=== PATIENT | female | born 1935 | race Caucasian/White ===

== ENCOUNTER 2024-06-01 19:54 | Inpatient (IN) | payer MEDICARE, SELFPAY ==
[2024-06-01] VITALS (11 sets, daily range): BP systolic 93–137; BP diastolic 52–79; PULSE 79–112; RESP 16–23; TEMP 36.8–38.7; O2SAT 91–98; BMI 23.2
--- NOTE | 2024-06-01 20:06 | CTR_ITS ---
PROCEDURE INFORMATION: Exam: CT Head Without Contrast Exam date and time: 06/01/2024 8:22 PM Age: 89 years old Clinical indication: Altered mental status/memory loss; Additional info: AMS TECHNIQUE: Imaging protocol: Computed tomography of the head without contrast. Radiation optimization: All CT scans at this facility use at least one of these dose optimization techniques: automated exposure control; mA and/or kV adjustment per patient size (includes targeted exams where dose is matched to clinical indication); or iterative reconstruction. COMPARISON: No relevant prior studies available. RADIATION DOSE METRICS: Total DLP (mGy-cm): 1119.8 FINDINGS: Brain: Hypoattenuation within the left parieto-occipital lobe concerning for infarct. Encephalomalacia within anterior left frontal lobe. Moderate microangiopathy with global cerebral volume loss. No intracranial hemorrhage. Cerebral ventricles: No ventriculomegaly. Paranasal sinuses: Visualized sinuses are unremarkable. No fluid levels. Mastoid air cells: Visualized mastoid air cells are well aerated. Bones: Unremarkable. No acute fracture. Soft tissues: Unremarkable. CT/CT head wo con* [id number] IMPRESSION: Hypoattenuation within the left parieto-occipital lobe concerning for infarct. Encephalomalacia within anterior left frontal lobe. Moderate microangiopathy with global cerebral volume loss. COMMENT: THIS REPORT CONTAINS FINDINGS THAT MAY BE CRITICAL TO PATIENT CARE. The exam findings were verbally communicated by me to CONRAD VELASQUEZ via telephone conference at 8:37 PM CDT on 06/01/2024. The findings were acknowledged and understood.
--- NOTE | 2024-06-01 20:06 | XRR_ITS ---
PROCEDURE INFORMATION: Exam: XR Chest Exam date and time: 06/01/2024 8:16 PM Age: 89 years old Clinical indication: Other: AMS; Additional info: Possible sepsis TECHNIQUE: Imaging protocol: Radiologic exam of the chest. Views: 1 view. COMPARISON: No relevant prior studies available. FINDINGS: Lungs: Retrocardiac opacities may represent atelectasis versus consolidation. Pleural spaces: Unremarkable. No pleural effusion. No pneumothorax. Heart/Mediastinum: Cardiomegaly. Vasculature: Atherosclerotic calcifications. Bones/joints: Unremarkable. Soft tissues: Bilateral breast prosthesis. XR/XR chest 1V portable [id number] IMPRESSION: Retrocardiac opacities may represent atelectasis versus consolidation. Cardiomegaly.
--- NOTE | 2024-06-01 20:08 | ED_ITS ---
HPI - Fever 2 General: Chief Complaint: Fever Stated Complaint: AMS Time Seen by Provider: 06/01/24 19:55 Source: EMS Mode of arrival: EMS Limitations: altered mental status History of Present Illness: 89-year-old female is here from [facility] visiting family patient's had a history of UTIs per EMS states that family had called because she had been confused since around noon or 1 today patient had a temperature 101.6 with EMS patient here is confused she is able to tell me her name she knows where she is from but she is quite confused trying to answer any questions and does not know the year. No known recent cough or vomiting. Per daughter patient has had difficulty ambulating today as well she states this started around noon. Patient states she has had a stroke in the past. Review of Systems 2 General: Reports: ROS unobtainable due to mental status Physical Exam 2 Const: COMMON NORMALS: alert; negative for patient oriented x3 ORIENTATION/CONSCIOUSNESS: Yes oriented to person; not oriented to time HENMT: COMMON NORMALS: normocephalic and atraumatic HEAD & SCALP: n ormocephalic and atraumatic Eye: COMMON NORMALS: Equal, round and reactive pupils present and EOMs intact bilaterally PUPIL: Yes Equal, round and reactive pupils present Neck/C-Spine: COMMON NORMALS: full ROM and supple Chest: COMMONS NORMALS: normal inspection of the chest and normal palpation of entire chest wall Resp: COMMON NORMALS: normal respiratory effort, No retractions, No use of accessory muscles and clear to auscultation bilaterally AUSCULTATION: clear to auscultation bilaterally Cardio: COMMON NORMALS: regular rate, regular rhythm and No murmurs present (Cardio) RATE: regular rate RHYTHM: regular rhythm GI: COMMON NORMALS: Normal to inspection, nondistended, normoactive bowel sounds present, Soft to palpation, non-tender and no masses PALPATION: Yes Soft to palpation Extremity: COMMON NORMALS: normal to inspection and full ROM Neuro: COMMON NORMALS: moves all extremities and no focal motor deficits; negative for patient oriented x3 SENSORIUM/ORIENTATION: Yes alert, Yes oriented to person and No oriented to time CRANIAL NERVES: Yes CN normal except as noted SPEECH: speech normal Psych: COMMON NORMALS: cooperative; negative for mental status grossly normal Skin: COMMON NORMALS: no rashes or lesions noted and no wounds GENERAL SKIN EXAM: no rashes or lesions noted Course 2 Vital Signs: Vital signs: Vital Signs Temperature 101.6 F H 06/01/24 21:18 Pulse Rate 88 06/01/24 21:18 Respiratory Rate 16 06/01/24 21:18 Blood Pressure 123/68 06/01/24 21:18 Pulse Oximetry 92 06/01/24 21:18 Oxygen Delivery Me thod Room Air 06/01/24 21:18 Oxygen Flow Rate 2 06/01/24 20:33 MDM - Fever Medical Decision Making Patient presents with altered mental status confusion likely from UTI. Head CT showed concern for stroke CTA showed no large occlusion she had a history of a stroke in the past she is not a lytic candidate as her last known normal was noon no large thrombus is not a thrombectomy candidate her altered mental status symptoms likely from her UTI will admit to treat her UTI spoke to the hospitalist her blood pressures here been stable Medical Records I reviewed the patient's medical records. Lab Data I reviewed the patient's lab results. 06/01/24 20:06 06/01/24 20:06 Radiology Impressions Chest X-Ray 06/01/24 20:06 IMPRESSION: Retrocardiac opacities may represent atelectasis versus consolidation. Cardiomegaly. Head CT 06/01/24 20:06 IMPRESSION: Hypoattenuation within the left parieto-occipital lobe concerning for infarct. Encephalomalacia within anterior left frontal lobe. Moderate microangiopathy with global cerebral volume loss. COMMENT: THIS REPORT CONTAINS FINDINGS THAT MAY BE CRITICAL TO PATIENT CARE. The exam findings were verbally communicated by me to CONRAD VELASQUEZ via telephone conference at 8:37 PM CDT on 06/01/2024. The findings were acknowledged and understood. Head/Neck CTA 06/01/24 20:39 IMPRESSION: 1. No large vessel stenosis or occlusion is seen. 2. Hypoattenuation within the left parieto-occipital lobe concerning for infarction. 3. Encephalomalacia within anterior left frontal lobe. Moderate microangiopathy with global cerebral volume loss. IMPRESSION: 1. No stenosis or occlusion. 2. Moderate atherosclerotic calcifications of the carotid bifurcations and proximal internal carotid arteries without significant stenosis. REFERENCES: NASCET CRITERIA. The degree of stenosis in the cervical segment of the internal carotid artery is based on NASCET criteria. Normal is no stenosis. Mild is less than 50% stenosis. Moderate is 50-69% stenosis. Severe is 70% to 99% stenosis. Total occlusion is no detectable patent lumen. Laboratory Results WBC 13.10 10^3/uL (3.29-11.43) H 06/01/24 20:06 RBC 3.88 10^6/uL (3.85-5.65) 06/01/24 20:06 Hgb 11.10 g/dL (11.27-16.99) L 06/01/24 20:06 Hct 35.0 % (36-47) L 06/01/24 20:06 MCV 90.2 fl (85-98) 06/01/24 20:06 MCH 28.6 pg (27-33) 06/01/24 20: MCHC 31.7 g/dL (30-55) 06/01/24 20:06 RDW 15.6 % (12.1-15.1) H 06/01/24 20:06 Plt Count 136 10^3/cmm (157-399) L 06/01/24 20:06 MPV 12.0 fL (7.4-10.4) H 06/01/24 20:06 Neut % (Auto) 77.8 % 06/01/24 20:06 Lymph % (Auto) 13.8 % 06/01/24 20:06 [place] % (Auto) 7.4 % 06/01/24 20:06 Eos % (Auto) 0.0 % 06/01/24 20:06 Baso % (Auto) 0.2 % 06/01/24 20:06 Neut # (Auto) 10.20 10^3/uL (1.8-7.7) H 06/01/24 20:06 Lymph # (Auto) 1.8 10^3/uL (0.8-4.8) 06/01/24 20:06 [place] # (Auto) 1.0 10^3/uL (0.2-0.9) H 06/01/24 20:06 Eos # (Auto) 0.0 10^3/uL (0.0-0.8) 06/01/24 20:06 Baso # (Auto) 0.0 10^3/uL (0.0-0.1) 06/01/24 20:06 Nucleated RBC % (auto) 0 % 06/01/24 20:06 Nucleated RBCs # 0.0 /100WBC 06/01/24 20:06 PT 15.90 SECONDS (12.1-14.9) H 06/01/24 20:06 INR 1.23 (0.8-1.2) H 06/01/24 20:06 Sodium 139 mmol/L (136-145) 06/01/24 20:06 Potassium 4.0 mmol/L (3.5-5.1) 06/01/24 20:06 Chloride 103 mmol/L (98-107) 06/01/24 20:06 Carbon Dioxide 22 mmol/L (22-29) 06/01/24 20:06 Anion Gap 18.0 (5-19) 06/01/24 20:06 BUN 36 mg/dL (8-23) H 06/01/24 20:06 Creatinine 1.2 mg/dL (0.5-0.9) H 06/01/24 20:06 GFR Calculation Not Reportable 06/01/24 20:06 Glucose 125 mg/dL (65-115) H 06/01/24 20:06 POC Glucose 117 mg/dL (70-110) H 06/01/24 20:46 Calculated Osmolality 298 mOsm/kg (285-295) H 06/01/24 20:06 Lactic Acid 1.2 mmol/L (0.5-2.2) 06/01/24 20:06 Calcium 8.5 mg/dL (8.5-10.5) 06/01/24 20:06 Magnesium 2.1 mg/dL (1.7-2.3) 06/01/24 20:06 Total Bilirubin 0.5 mg/dL (0.15-1.2) 06/01/24 20:06 AST 17 U/L (0-32) 06/01/24 20:06 ALT 10 U/L (0-33) 06/01/24 20:06 Alkaline Phosphatase 93 U/L (35-105) 06/01/24 20:06 Total Protein 6.9 g/dL (6.6-8.7) 06/01/24 20:06 Albumin 3.8 g/dL (3.5-5.2) 06/01/24 20:06 Globulin 3.1 g/dL (1.3-4.6) 06/01/24 20:06 Urine Color Yellow (Yellow) 06/01/24 20:50 Urine Appearance Cloudy (CLEAR) A 06/01/24 20:50 Urine pH 5.5 (5-7) 06/01/24 20:50 Ur Specific [place] 1.016 (1.005-1.030) 06/01/24 20:50 Urine Protein 2+ (Negative) A 06/01/24 20:50 Urine Glucose (UA) Negative (Normal) 06/01/24 20:50 Urine Ketones Negative (Negative) 06/01/24 20:50 Urine Blood 2+ (Negative) A 06/01/24 20:50 Urine Nitrate Negative (Negative) 06/01/24 20:50 Urine Bilirubin Negative (Negative) 06/01/24 20:50 Urine Urobilinogen 1.0 mg/dL (Negative) 06/01/24 20:50 Ur Leukocyte Esterase 3+ (Negative) A 06/01/24 20:50 Urine RBC 0-2 /hpf (0-2) 06/01/24 20:50 Urine WBC >100 /hpf (0-5) H 06/01/24 20:50 Ur Squamous Epith Cells 0-5 /hpf (0-5) 06/01/24 20:50 Amorphous Sediment Not Reportable 06/01/24 20:50 Urine Bacteria 4+ /hpf (NONE) H 06/01/24 20:50 Hyaline Casts 87.69 /lpf 06/01/24 20:50 All radiology interpretation(s) finalized by discharge EKG Data EKG 1: I personally reviewed and interpreted this EKG as follows: EKG interpretation date: 06/01/24 EKG interpretation time: 20:15 Interpretation: afib hr [address] elevation qrs 75 qtc 367 Critical Care Time 2 Critical Care Time: Critical Care Time: Yes Total Critical Care Time: 40 Attestation: The high probability of a clinically significant, sudden or life threatening deterioration of the patient's neuro system(s) required my full and direct attention, intervention and personal management. The critical care time is as shown. This time is in addition to time spent performing any reported procedures but includes the following: [x] Data and vital sign review and interpretation [x] Patient assessment, examination and intervention [x] Documentation [x] Medication orders and management Discharge Plan Discharge Patient Disposition: Admitted As Inpatient Clinical Impression: Acute cystitis, Sepsis, Altered mental status Condition: Stable Prescriptions: No Action mirtazapine 15 mg tablet atorvastatin 10 mg tablet digoxin 125 mcg (0.125 mg) tablet donepezil 10 mg tablet Eliquis 2.5 mg tablet BID pantoprazole 20 mg tablet,delayed release (DR/EC) PO sertraline 50 mg tablet memantine 10 mg tablet BID clonazepam 0.5 mg tablet 0.25 mg melatonin 5 mg B Complex Rx Instructions: 1 tab every other day Probiotic fiber Miralax Coding Level of Care Code ED Testing Director for Ty Gupta
--- NOTE | 2024-06-01 20:15 | ECG_ITS ---
[facility] Test Date: 2024-06-01 Pat Name: Reyna Romano Department: Room: Gender: Female Binder Operator: : 1935 Requested By: Devon Stewart Order Number: [id number] Janett MD: Prashant Shetty M.D. Measurements Intervals [place] Rate: 101 P: 0 CT: 0 QRS: -8 QRSD: 75 T: 180 QT: 309 QTc: 401 Interpretive Statements ATRIAL FIBRILLATION WITH RAPID VENTRICULAR RESPONSE ST DEVIATION AND MODERATE T-WAVE ABNORMALITY, CONSIDER LATERAL ISCHEMIA [-0.1+ mV T-WAVE IN I/aVL/V5/V6] No previous ECG available for comparison Electronically Signed On 06-02-2024 7:53:15 CDT by Prashant Shetty M.D. [email or web address] Surgical/store/[id number]
[2024-06-01 20:17] LABS: Basophils % 0.2 %; Lymphocytes # 1.8 10^3/uL (0.8-4.8); Lymphocytes % 13.8 %; Mean Corpuscular HGB Conc 31.7 g/dL (30-55); Mean Corpuscular Hemoglobin 28.6 pg (27-33); Mean Corpuscular Volume 90.2 fl (85-98); Monocytes % 7.4 %; Neutrophils % 77.8 %; Nucleated Red Blood Cells % 0 %; Platelet Count 136 10^3/cmm (157-399); Red Blood Count 3.88 10^6/uL (3.85-5.65); Red Cell Distribution Width 15.6 % (12.1-15.1)
[2024-06-01 20:23] LABS: INR 1.23 (0.8-1.2)
[2024-06-01 20:30] LABS: Alanine Aminotransferase 10 U/L (0-33); Albumin Level 3.8 g/dL (3.5-5.2); Alkaline Phosphatase 93 U/L (35-105); Aspartate Amino Transferase 17 U/L (0-32); Blood Urea Nitrogen 36 mg/dL (8-23); Calcium 8.5 mg/dL (8.5-10.5); Carbon Dioxide 22 mmol/L (22-29); Chloride 103 mmol/L (98-107); Creatinine Clr Calc Pharmacy 24.5303; Globulin 3.1 g/dL (1.3-4.6); Glucose 125 mg/dL (65-115); Magnesium 2.1 mg/dL (1.7-2.3); Osmolality Calculated 298 mOsm/kg (285-295); Sodium 139 mmol/L (136-145); Total Bilirubin 0.5 mg/dL (0.15-1.2); Total Protein 6.9 g/dL (6.6-8.7)
[2024-06-01 20:31] LABS: Lactic Sepsis W/Reflex 1.2 mmol/L (0.5-2.2)
--- NOTE | 2024-06-01 20:39 | CTR_ITS ---
PROCEDURE INFORMATION: Exam: CTA Head With Contrast, Arteriography Exam date and time: 06/01/2024 8:54 PM Age: 89 years old Clinical indication: Stroke-like symptoms; Altered mental status/memory loss; Additional info: CVA TECHNIQUE: Imaging protocol: Computed tomographic angiography of the head with contrast. Exam focused on the arteries. 3D rendering (Not supervised by radiologist): MIP and/or 3D reconstructed images were created by the technologist. Radiation optimization: All CT scans at this facility use at least one of these dose optimization techniques: automated exposure control; mA and/or kV adjustment per patient size (includes targeted exams where dose is matched to clinical indication); or iterative reconstruction. Contrast material: OMNI 350; Contrast volume: 100 ml; Contrast route: INTRAVENOUS (IV); COMPARISON: CT head wo con* [id number] 06/01/2024 8:22 PM RADIATION DOSE METRICS: Total DLP (mGy-cm): 366.62 FINDINGS: ANTERIOR CIRCULATION: Right internal carotid artery: Intracranial segment is patent with no significant stenosis. No aneurysm. Right middle cerebral artery: No occlusion or significant stenosis. No aneurysm. Right anterior cerebral artery: No occlusion or significant stenosis. No aneurysm. Left internal carotid artery: Intracranial segment is patent with no significant stenosis. No aneurysm. Left middle cerebral artery: No occlusion or significant stenosis. No aneurysm. Left anterior cerebral artery: No occlusion or significant stenosis. No aneurysm. POSTERIOR CIRCULATION: Right vertebral artery: No occlusion or significant stenosis. No aneurysm. Left vertebral artery: No occlusion or significant stenosis. No aneurysm. Basilar artery: No occlusion or significant stenosis. No aneurysm. Right posterior cerebral artery: No occlusion or significant stenosis. No aneurysm. Left posterior cerebral artery: No occlusion or significant stenosis. No aneurysm. Brain: Hypoattenuation within the left parieto-occipital lobe concerning for infarction. Encephalomalacia within anterior left frontal lobe. Moderate microangiopathy with global cerebral volume loss. No definite mass, mass effect, or midline shift. Cerebral ventricles: No ventriculomegaly. Bones/joints: No acute fracture. Soft tissues: Unremarkable. COMMENTS: THIS REPORT CONTAINS FINDINGS THAT MAY BE CRITICAL TO PATIENT CARE. The exam findings were verbally communicated by me to CONRAD VELASQUEZ via telephone conference at 8:37 PM CDT on 06/01/2024. The findings were acknowledged and understood. PROCEDURE INFORMATION: Exam: CTA Neck With Contrast Exam date and time: 06/01/2024 8:54 PM Age: 89 years old Clinical indication: Stroke-like symptoms; Altered mental status/memory loss; Additional info: CVA TECHNIQUE: Imaging protocol: Computed tomographic angiography of the neck with contrast. Exam focused on the cervical segments of the vasculature. 3D rendering (Not supervised by radiologist): MIP and/or 3D reconstructed images were created by the technologist. Radiation optimization: All CT scans at this facility use at least one of these dose optimization techniques: automated exposure control; mA and/or kV adjustment per patient size (includes targeted exams where dose is matched to clinical indication); or iterative reconstruction. Contrast material: OMNI 350; Contrast volume: 100 ml; Contrast route: INTRAVENOUS (IV); COMPARISON: CT head wo con* [id number] 06/01/2024 8:22 PM RADIATION DOSE METRICS: Total DLP (mGy-cm): 366.12 FINDINGS: Right common carotid artery: No stenosis. No dissection or occlusion. Moderate atherosclerosis. Right internal carotid artery: No stenosis of the extracranial segment. No dissection or occlusion. Moderate atherosclerosis. Right external carotid artery: No occlusion or stenosis of the origin. Left common carotid artery: No stenosis. No dissection or occlusion. Moderate atherosclerosis. Left internal carotid artery: No stenosis of the extracranial segment. No dissection or occlusion. Moderate atherosclerosis. Left external carotid artery: No occlusion or stenosis of the origin. Right vertebral artery: No stenosis. No dissection or occlusion. Left vertebral artery: No stenosis. No dissection or occlusion. Soft tissues: Normal. No significant soft tissue swelling. Bones/joints: No acute fracture. Moderate to severe cervical spondylosis with intervertebral disc space narrowing posterior disc osteophyte complexes at the level of C2-C3 and C5-C6. Severe right facet arthropathy. CT/CT angio headneck* [id number] IMPRESSION: 1. No large vessel stenosis or occlusion is seen. 2. Hypoattenuation within the left parieto-occipital lobe concerning for infarction. 3. Encephalomalacia within anterior left frontal lobe. Moderate microangiopathy with global cerebral volume loss. IMPRESSION: 1. No stenosis or occlusion. 2. Moderate atherosclerotic calcifications of the carotid bifurcations and proximal internal carotid arteries without significant stenosis. REFERENCES: NASCET CRITERIA. The degree of stenosis in the cervical segment of the internal carotid artery is based on NASCET criteria. Normal is no stenosis. Mild is less than 50% stenosis. Moderate is 50-69% stenosis. Severe is 70% to 99% stenosis. Total occlusion is no detectable patent lumen.
[2024-06-01 21:03] LABS: Charge for UA Resulting for Rev
[2024-06-01] MEDS: iohexol 350 mg/mL 500 mL Btl (per mL) IV (21:04)
[2024-06-01] MEDS: acetaminophen 500 mg Tablet 1000 MG PO (21:11)
[2024-06-01] MEDS: piperacillin-tazobactam 3.375 GM in sodium chloride 0.9% (plus) 50 ML IV (21:11)
[2024-06-01] MEDS: vancomycin 1,000 MG in sodium chloride 0.9% 250 ML 250 MG IV (21:12)
[2024-06-01 21:28] LABS: Bilirubin Urine Negative (Negative); Blood Urine 2+ (Negative); Glucose Urine UA Negative (Normal); Ketones Urine Negative (Negative); Leukocyte Esterase Urine 3+ (Negative); Nitrate Urine Negative (Negative); Protein Urine 2+ (Negative); Specific Gravity, Urine 1.016 (1.005-1.030); Urine Appearance Cloudy (CLEAR); Urine Color Yellow (Yellow); pH Urine 5.5 (5-7)
[2024-06-01 21:33] LABS: Bacteria Urine 4+ /hpf; Hyaline Casts Urine 87.69 /lpf; RBC Urine 0-2 /hpf (0-2); Squamous Epithelial Cell Urine 0-5 /hpf (0-5); WBC Urine >100 /hpf (0-5)
[2024-06-01 21:35] LABS: Glucose Point of Care 117 mg/dL (70-110)
[2024-06-01 21:35] LABS: Add Urine Culture? Yes
[2024-06-01] MEDS: aspirin 325 mg Tablet PO (21:49)
[2024-06-01 22:49] LABS: SARS Covid-2 Antigen Negative (Negative)
--- NOTE | 2024-06-01 23:59 | P.HP_ITS ---
Providers/Chief Complaint 2 Admitting Physician: Margarita Viveros MD Chief Complaint: AMS History of Present Illness Reyna Romano is a 89 year old female with known H/o vascular dementia,h/o prior strokes, currently at baseline mentation, A fib on a/c with Eliquis brought to the ER by daughter with c/o fever, generalized weakness and malaise. Symptoms started approximately 24 hrs ago. She was noted to be tachycardic, and brought by daughter to ER due to concern for A fib. Patient correctly states her name recognizes her daughter and the fact she is not at home. She denies any chest or abdominal pain. C/o 1 episode of vomiting today. No c/o diarrhea. No c/o dysuria. Review of Systems 2 General: Reports: ROS unobtainable due to medical condition Medications/Allergies Home Medications Medication Instructions Recorded Confirmed Last Taken Type B Complex 06/01/24 Unknown History Miralax 06/01/24 Unknown History Probiotic 06/01/24 Unknown History apixaban 2.5 mg tablet (Eliquis) mg BID 06/01/24 Unknown History atorvastatin 10 mg tablet mg 06/01/24 06/01/24 Unknown History clonazepam 0.5 mg tablet 0.25 mg 06/01/24 Unknown History digoxin 125 mcg (0.125 mg) tablet 06/01/24 Unknown History donepezil 10 mg tablet mg 06/01/24 Unknown History fiber 06/01/24 Unknown History melatonin 5 mg 06/01/24 Unknown History memantine 10 mg tablet mg BID 06/01/24 Unknown History mirtazapine 15 mg tablet mg 06/01/24 Unknown History pantoprazole 20 mg tablet,delayed mg PO 06/01/24 Unknown History release sertraline 50 mg tablet mg 06/01/24 Unknown History Allergies Allergy/AdvReac Type Severity Reaction Status Date / Time ibuprofen Allergy Unknown Verified 06/01/24 20:04 PFSH Acute 2 PFSH: Medical History (Updated 06/02/24 @ 06:19 by Margarita Viveros MD) Atrial fibrillation and flutter Vascular dementia Vitals/I&O/Wt Last Vital Signs Temp 101.6 F H 06/01/24 21:18 Pulse 90 06/01/24 23:30 Resp 18 06/01/24 23:30 BP 94/58 06/01/24 23:30 Pulse Ox 97 08/05/24 23:30 O2 Del Method Nasal Cannula 06/01/24 23:00 O2 Flow Rate 2 06/01/24 23:00 Weight last 48 hrs Weight 53.977 kg Physical Exam 2 Narrative: General: No acute distress, AO x2 HEENT: PERRLA, pupils bilaterally equal and reactive, pallors not present Chest: Normal vesicular breath sounds, no added sounds, equal good air entry bilaterally CVS: S1-S2 regular, no murmurs, no tachycardia, no gallops, no rubs Abdomen: Soft, nontender, no organomegaly, bowel sounds present Neuro: No focal deficits, no facial deformity, AO x2, power 5/5 in all limbs Data 06/02/24 03:54 06/02/24 03:54 Micro: Microbiology 06/01/24 21:31 Blood Culture - Preliminary Blood SPECIMEN COLLECTED 06/01/24 21:21 Blood Culture - Preliminary Blood SPECIMEN COLLECTED A&P Assessment and plan (1) Acute cystitis: (2) Atrial fibrillation with RVR: (3) Pneumonia: Plan Fever 101.6F, leukocytosis, positive UA and LLL infiltrate 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 Showed hypoattenutaion in left parieto occipital region, likely old, corelating with history provided by family DNR/ DNI DVT ppx: Eliquis Attestations 2 Medical Necessity Statement*: > 2 midnight admission anticipated Coding Level of Care Code Acute Code for Chg Fwd Moderate MDM includes number and complexity of problems actively addressed during encounter, amount and/or complexity of data reviewed/ordered and described risk of complication, morbidity or mortality of management as documented Diagnoses Acute cystitis N30.00 Atrial fibrillation with RVR I48.91 Pneumonia J18.9
[2024-06-02] VITALS (11 sets, daily range): BP systolic 95–135; BP diastolic 52–69; PULSE 68–108; RESP 18–27; TEMP 36.4–39.4; O2SAT 91–97
[2024-06-02 00:33] LABS: NT Pro B Type Natriuretic Pept 10211 pg/mL (0-450)
[2024-06-02] MEDS: sodium chloride 0.9% 1,000 ML 50 ML IV (00:43)
[2024-06-02 00:48] LABS: Digoxin 1.6 ng/mL (0.6-1.2)
[2024-06-02 04:59] LABS: Basophils # 0.1 10^3/uL (0.0-0.1); Basophils % 0.5 %; Eosinophils # 0.2 10^3/uL (0.0-0.8); Eosinophils % 1.9 %; Hematocrit 39.1 % (36-47); Lymphocytes # 1.2 10^3/uL (0.8-4.8); Lymphocytes % 11.8 %; Mean Corpuscular HGB Conc 29.2 g/dL (30-55); Mean Corpuscular Hemoglobin 28.8 pg (27-33); Mean Corpuscular Volume 98.7 fl (85-98); Mean Platelet Volume 12.1 fL (7.4-10.4); Monocytes # 0.6 10^3/uL (0.2-0.9); Monocytes % 5.5 %; Neutrophils # 8.32 10^3/uL (1.8-7.7); Neutrophils % 79.7 %; Nucleated Red Blood Cells % 0 %; Platelet Count 107 10^3/cmm (157-399); Red Blood Count 3.96 10^6/uL (3.85-5.65); Red Cell Distribution Width 15.9 % (12.1-15.1); White Blood Count 10.43 10^3/uL (3.29-11.43)
[2024-06-02] MEDS: piperacillin-tazobactam 3.375 GM in sodium chloride 0.9% (plus) 50 ML IV ×3 (05:09→21:08)
[2024-06-02 05:34] LABS: Alanine Aminotransferase 11 U/L (0-33); Albumin Level 2.9 g/dL (3.5-5.2); Alkaline Phosphatase 91 U/L (35-105); Blood Urea Nitrogen 34 mg/dL (8-23); Calcium 7.6 mg/dL (8.5-10.5); Carbon Dioxide 16 mmol/L (22-29); Chloride 107 mmol/L (98-107); Creatinine Clr Calc Pharmacy 22.6433; Globulin 2.9 g/dL (1.3-4.6); Glucose 84 mg/dL (65-115); Osmolality Calculated 289 mOsm/kg (285-295); Sodium 136 mmol/L (136-145); Thyroid Stimulating Hormone 1.28 uIU/mL (0.27-4.20); Total Bilirubin 0.5 mg/dL (0.15-1.2); Total Protein 5.8 g/dL (6.6-8.7)
[2024-06-02 05:36] LABS: Anion Gap 16.8 (5-19); Aspartate Amino Transferase 21 U/L (0-32); Potassium 3.8 mmol/L (3.5-5.1)
[2024-06-02] MEDS: pantoprazole DR 40 mg Tablet PO (08:54)
[2024-06-02] MEDS: azithromycin 250 mg Tablet 500 MG PO (08:54)
[2024-06-02] MEDS: apixaban 5 mg Tablet PO (08:54)
--- NOTE | 2024-06-02 08:55 | PC.CHAP ---
Pastoral Care Encounter/Spiritual Assessment Type of Contact [] Declined shop fitter visit [] Patient/Family/Request visit [] Outpatient visit [] Follow-up visit [] Physician referral [] Code/Alert [x] Routine visit [] Staff referral [] Actively dying [x] Patient sleeping [x] Family support [] [] Out of room [] Palliative care [] [] Receiving care in room [] Pre-surgical visit [] Trauma [] Long length of stay [] ICU visit [] Other: Relational/Emotional Strength [] Patient feels connected with others/family/visitors/staff [] Distress [] Loneliness/isolation [] Abandonment Spirituality of Patient [] Person of Yris [] Attends Restoration of their Yris [] Believes in Prayer [] Reads Bible or Shinto materials [] There are Spiritual issues to be addressed Construction Tech Interventions [x] Prayer [] Active listening [x] Non-anxious presence [x] Spiritual/emotional support [] Crisis/trauma care [] Spiritual counseling [] Bereavement support [] Provided bereavement packet [] Provided Bible/devotional materials [] Provided toy/stuffed animal, coloring book to patient or family member [] Provided Communion [] Anointing/[place] [] Salvation [x] Completed spiritual assessment [x] Other: prayed with family Impact on Illness or Injury [] Angry [] Fearful [] Anxious [] Often cries [] Exhaustion [] Unable to work [] Unable to attend advent [] Unable to walk/stand [] Unable to read [] Unable to drive [] Unable to eat/drink [] Unable to sleep [] Unable to be with family [] Patient intubated [] Other: Summary Time spent with patient 5 min
--- NOTE | 2024-06-02 12:13 | USCV_ITS ---
Reyna Del Rosario Age: 89 Gender: F : 1935 Exam Date: 06/02/2024 13:20 Ordering Phys: Evans Severino MD Technologist: Exam Location: [facility] [place] [facility] [place] Indication: murmur BP: / HR: Rhythm: Sinus Technical Quality: Adequate MEASUREMENTS (Male / Female) Normal Values 2D ECHO LV Diastolic Diameter PLAX 3.4 cm 4.2 - 5.9 / 3.9 - 5.3 cm IVS Diastolic Thickness 1.1 cm 0.6 - 1.0 / 0.6 - 0.9 cm IVS Systolic Thickness 1.7 cm LVPW Diastolic Thickness 1.3 cm 0.6 - 1.0 / 0.6 - 0.9 cm LVPW Systolic Thickness 1.2 cm LVOT Diameter 2.0 cm LV Ejection Fraction 2D Teich 67.7 % LV Ejection Fraction MOD 4C 64.1 % LV Ejection Fraction MOD 2C 68.0 % LV Ejection Fraction 2C AL 69.0 % LA Diameter 3.3 cm RA Systolic Volume 4C AL 83.7 ml RA Systolic Volume 4C MOD 77.4 ml Aorta at Sinotubular Diameter 2.3 cm M-MODE LA Ao Ratio MM 1.5 AV Cusp Separation MM 2.4 cm DOPPLER MV Area PHT 6.3 cm squared Mitral E to A Ratio 3.4 TV Peak Velocity 185.0 cm/s TR Peak Velocity 266.0 cm/s TR Peak Gradient 28.3 mmHg TV Peak E Velocity 107.0 cm/s Right Atrial Pressure 3.0 mmHg Pulmonary Artery Systolic Pressu 31.3 mmHg PV Peak Velocity 57.0 cm/s FINDINGS Left Ventricle Left ventricle is normal size. LV systolic function is normal with EF of 60 to 65%. No regional wall motion abnormalities are seen. Left ventricular hypertrophy seen. Right Ventricle Normal in size and function Right Atrium Normal in size Left Atrium Dilated Mitral Valve Moderate mitral annular calcification. Mild mitral regurgitation. Aortic Valve Structurally normal aortic valve. Mild to moderate aortic regurgitation. Tricuspid Valve Moderate tricuspid regurgitation. Pulmonary artery systolic pressure is normal. Pulmonic Valve Not well visualized Pericardium Normal Aorta Normal in size IVC Appears to be normal CONCLUSIONS LV systolic function is normal with EF of 60 to 65%. Left atrial dilation Mild mitral regurgitation Mild to moderate aortic regurgitation Moderate tricuspid regurgitation No comparison studies are available. Prashant Shetty MD (Electronically Signed) Final Date: 02 June 2024 16:52 S
--- NOTE | 2024-06-02 12:22 | CTR_ITS ---
PROCEDURE INFORMATION: Exam: CT Abdomen And Pelvis Without Contrast Exam date and time: 06/02/2024 10:05 PM Age: 89 years old Clinical indication: Abdominal tenderness; Prior surgery; Surgery date: 6+ months; Surgery type: Gastric SX, breast augmentation; Additional info: Kiet, UTI, bacteremia TECHNIQUE: Imaging protocol: Computed tomography of the abdomen and pelvis without contrast. Radiation optimization: All CT scans at this facility use at least one of these dose optimization techniques: automated exposure control; mA and/or kV adjustment per patient size (includes targeted exams where dose is matched to clinical indication); or iterative reconstruction. COMPARISON: CR (CHEST, ) 06/01/2024 8:16 PM RADIATION DOSE METRICS: Total DLP (mGy-cm): 399.7 FINDINGS: Lungs: Dependent atelectasis in the lower lobes. Pleural spaces: Small pleural effusions. Heart: Cardiomegaly. Mitral annulus calcifications. Small pericardial effusion. Diaphragm: Hiatal hernia. Liver: Normal. No mass. Gallbladder and biliary ducts: Cholecystectomy. Prominence of the bile ducts is most likely chronic reservoir effect. Pancreas: Normal. No ductal dilation. Spleen: Normal. No splenomegaly. Adrenal glands: Normal. No mass. Kidneys and ureters: Excreted contrast in the bilateral renal collecting system. No hydronephrosis. Stomach and bowel: Gastric bypass changes. Partial small bowel resection. No obstruction. Gas and fluid in the proximal and transverse colon. Moderate gas and scattered stool throughout the remainder of the colon to the rectum. Appendix: The appendix is not visualized. No secondary signs of appendicitis. Intraperitoneal space: Unremarkable. No free air. No significant fluid collection. Vasculature: Scattered calcified arterial plaque. No aneurysm. Lymph nodes: Unremarkable. No enlarged lymph nodes. Urinary bladder: The urinary bladder is decompressed with a Amador catheter in place. Mild wall thickening. Reproductive: Hysterectomy. Normal small ovaries. Bones/joints: Thoracolumbar scoliosis. Degenerative changes in the spine. No fracture. Soft tissues: Breast implants with capsular calcifications. Body wall edema. Anterior laparotomy scar. CT/CT abdomen pelvis wo con [id number] IMPRESSION: 1. Mild wall thickening in the urinary bladder which is decompressed with a Amador catheter. Cystitis is not excluded. Clinical correlation recommended. 2. Gaseous distension of the colon, most likely ileus. 3. Small pleural effusions.
[2024-06-02 12:54] LABS: Procalcitonin 0.83 ng/mL (0-0.5)
[2024-06-02 13:05] LABS: Estmated Average Glucose 114; Hemoglobin A1C 5.6 % (4.0-6.0)
--- NOTE | 2024-06-02 13:12 | P.PN_ITS ---
Subjective 2 Subjective: Admitted overnight. H&P and labs appreciated. Seen with daughter at bedside. As per daughter patient seems to be doing better. Patient has history of baseline vascular dementia. He usually lives in [place] and is visiting daughter for now. Remains on room air. Tmax since admission 101.6 Fahrenheit Vitals/I&O/Wt Last Vital Signs Temp 98.7 F 06/02/24 07:41 Pulse 107 H 06/02/24 07:41 Resp 19 H 06/02/24 07:41 BP 97/53 06/02/24 07:41 Pulse Ox 93 06/02/24 07:41 O2 Del Method Room Air 06/02/24 07:41 O2 Flow Rate 2 06/01/24 23:00 06/01/24 06/02/24 06/02/24 22:59 06:59 14:59 Intake Total / 48.333 / 48.333 Balance / 48.333 / 48.333 Weight last 48 hrs Weight 54.431 kg Weight 53.977 kg Weight 53.977 kg Physical Exam 2 Narrative: General: No acute distress, AO x2 HEENT: PERRLA, pupils bilaterally equal and reactive, pallors not present Chest: Normal vesicular breath sounds, no added sounds, equal good air entry bilaterally CVS: S1-S2 regular, no murmurs, no tachycardia, no gallops, no rubs Abdomen: Soft, nontender, no organomegaly, bowel sounds present Neuro: No focal deficits, no facial deformity, AO x2, power 5/5 in all limbs Urinary Catheter Management: Amador: Cath Placed During This Visit: yes Reason for Continuing Indwelling Catheter: Acute Urinary Retention or Obstruction Urinary Catheter Date of Insertion: 06/02/24 Urinary Catheter Time of Insertion: 06:03 Quick SOFA Score: Respiratory Rate: 19 Blood Pressure: 97/53 Joe Coma Scale: 10 qSOFA Score: 2 If qSOFA score 2 or greater, continue: PaO2/FiO2 Ratio (mmHg): 380 Blood Pressure Mean: 67 Bilirubin (mg/dl): 0.5 Platelets (x10?/ml): 107 C reatinine (mg/dl): 1.3 SOFA Score: 6 Evaluation: Current stage of sepsis: sepsis Sepsis stage criteria used: CMS Sep-1 and Sepsis-3 Crystalloid fluids: 30 mL/kg crystalloid fluids ordered and initiated within 3 hours Blood cultures ordered: Yes Possible source: genitourinary Focused Exam: Vital signs: Temp Pulse Resp BP Pulse Ox O2 Del Method 06/02/24 07:41 98.7 F 107 H 19 H 97/53 93 Room Air 06/02/24 06:00 108 H 06/02/24 04:00 98.3 F 86 23 H 98/52 94 Room Air Date exam was performed: 06/02/24 Time exam was performed: 13:14 2 Sepsis Screen No Definite Risk 06/01/24 23:30 Respiratory Rate 19 breaths/min H (12 - 18) 06/02/24 07:41 Blood Pressure 97/53 mmHg 06/02/24 07:41 Joe Coma Scale Score 10 06/01/24 23:58 Quick SOFA Score 1 06/01/24 23:30 SOFA Score: 2 Joe Coma Scale Score 10 06/01/24 23:58 Blood Pressure Mean 67 mmHg 06/02/24 07:41 Total Bilirubin 0.5 mg/dL (0.15-1.2) 06/02/24 03:54 Platelet Count 107 10^3/cmm (157-399) L 06/02/24 03:54 Creatinine 1.3 mg/dL (0.5-0.9) H 06/02/24 03:54 Data 06/02/24 03:54 06/02/24 03:54 Micro: Microbiology 06/01/24 21:21 Blood Culture - Preliminary Blood Escherichia coli 06/01/24 21:31 Blood Culture - Preliminary Blood SPECIMEN COLLECTED A&P Assessment and plan (1) Sepsis: SIRS: Tachycardic, Febrile, Leukocytosis Source: UTI End organ damage: Bacteremia, atrial fibrillation, JERRY Lactic acid within normal limits Patient did receive full 30 mL/kg BW. Continue with NS at 50 cc/h. Monitor blood pressures. Keep mean artery pressure 65 mmHg. Follow-up blood culture, urine culture, MRSA swab, procalcitonin, urine Legionella, bacterial antigen. Check respiratory viral panel. Continue with IV Zosyn for now. De-escalate antibiotics as per culture results. (2) E coli bacteremia: Blood cultures from admission positive. Repeat blood cultures in AM. Most likely in setting of UTI. Check CT abdomen pelvis to rule out kidney stones or obstructive nephropathy. Continue with IV antibiotics as above. De-escalate as per culture sensitivities. Patient will need at least 14 days of antibiotics after first negative blood cultures. (3) Acute cystitis: (4) Atrial fibrillation with RVR: Chronic history. Blood pressure soft. Heart rate improving with hydration and resolution of fever. Digoxin level elevated up to 1.6 on admission. Hold off on digoxin for now. IV metoprolol 2.5 mg every 4 hours as needed for heart rate of more than 100 bpm. Hold off and systolic blood pressure less than 90 mmHg. Repeat digoxin level in AM. If needed can use amiodarone. Continue with home dose of Eliquis 2.5 mg twice daily given advanced age and renal functions (5) JERRY (acute kidney injury): Do not have baseline. Currently creatinine worsening to 1.3. Start on IV fluids at 50 cc/h. Medical requisition done for nephrotoxic drugs. Monitor BMP daily. Monitor electrolytes. (6) Pneumonia: (7) Altered mental status: Most likely encephalopathy in setting of bacteremia/infection with baseline vascular dementia. Continue to monitor. Aspiration and fall precaution. (8) Elevated digoxin level: (9) Vascular dementia: Plan CODE STATUS: Discussed with patient's daughter and primary caregiver daughter at [place] over the phone. They state patient is DNR/DNI. Cardiac diet. Watch for aspiration precaution. Protonix OPD prophylaxis Eliquis will be sufficient for DVT prophylaxis Discharge plan: Plan to discharge home with caregiver once patient is clinically stable. Restart other home medications. Attestations 2 Medical Necessity Statement*: Requires further hospitalization for management of sepsis in setting of E. coli bacteremia, acute kidney injury, altered mental status, A-fib with RVR Diagnoses Sepsis A41.9 E coli bacteremia R78.81; B96.20 Acute cystitis N30.00 Atrial fibrillation with RVR I48.91 JERRY (acute kidney injury) N17.9 Pneumonia J18.9 Altered mental status R41.82 Vascular dementia F01.50 Elevated digoxin level R78.89
[2024-06-02 14:03] LABS: Iron 16 ug/dL (37-145)
[2024-06-02 14:19] LABS: Vitamin B12 1220 pg/mL (232-1245)
[2024-06-02 14:22] LABS: Adenovirus Not Detected (NOT DETECT); Chlamydia Pneumoniae Not Detected (NOT DETECT); Coronavirus 229E,HKU1,NL63,OC4 Not Detected (NOT DETECT); Human Metapneumovirus Not Detected (NOT DETECT); Human Rhinovirus/Enterovirus Not Detected (NOT DETECT); Influenza A Not Detected (NOT DETECT); Influenza A H1 Not Detected (NOT DETECT); Influenza A H1-2009 Not Detected (NOT DETECT); Influenza A H3 Not Detected (NOT DETECT); Influenza B Not Detected (NOT DETECT); Mycoplasma Pneumoniae Not Detected (NOT DETECT); Parainfluenza Virus Type 1 Not Detected (NOT DETECT); Parainfluenza Virus Type 2 Not Detected (NOT DETECT); Parainfluenza Virus Type 3 Not Detected (NOT DETECT); Parainfluenza Virus Type 4 Not Detected (NOT DETECT); Respiratory Syncytial Virus A Not Detected (NOT DETECT); Respiratory Syncytial Virus B Not Detected (NOT DETECT); SARS-COV-2 Not Detected (NOT DETECT)
[2024-06-02 14:28] LABS: Percent Saturation 5.3 % (20-50); Total Iron Binding Capacity 298 mcg/dl; Unsaturated Iron Binding 282 ug/dL (112-347)
[2024-06-02] MEDS: memantine 5 mg tablet 10 MG PO (17:34)
[2024-06-02] MEDS: mirtazapine 15 mg Tablet PO (17:39)
[2024-06-02] MEDS: donepezil 5 MG Tablet 10 MG PO (17:39)
[2024-06-02 18:23] LABS: Glucose Point of Care 81 mg/dL (70-110)
--- NOTE | 2024-06-02 18:35 | PC.NURSE ---
Patient more alert this afternoon than this morning. She is oriented to place and person. Daughter and granddaughter updated on plan and informed about infections and the plan to treat those. Heart rate doing much better, staying in the 70s-80s\.
[2024-06-02] MEDS: acetaminophen 325 mg Tablet 650 MG PO (19:58)
[2024-06-02] MEDS: apixaban 5 mg Tablet 2.5 MG PO (21:08)
[2024-06-03] VITALS (10 sets, daily range): BP systolic 95–142; BP diastolic 46–87; PULSE 83–114; RESP 20–30; TEMP 36.6–38.6; O2SAT 89–98; BMI 23.4
[2024-06-03 04:29] LABS: Basophils % 0.2 %; Eosinophils % 0.3 %; Lymphocytes # 1.4 10^3/uL (0.8-4.8); Lymphocytes % 14.6 %; Mean Corpuscular HGB Conc 30.5 g/dL (30-55); Mean Corpuscular Hemoglobin 28.4 pg (27-33); Mean Platelet Volume 12.9 fL (7.4-10.4); Monocytes # 0.7 10^3/uL (0.2-0.9); Monocytes % 7.2 %; Neutrophils # 7.42 10^3/uL (1.8-7.7); Neutrophils % 77.2 %; Nucleated Red Blood Cells % 0 %; Platelet Count 107 10^3/cmm (157-399); Red Blood Count 3.98 10^6/uL (3.85-5.65); Red Cell Distribution Width 16.1 % (12.1-15.1); White Blood Count 9.61 10^3/uL (3.29-11.43)
[2024-06-03 04:48] LABS: Alanine Aminotransferase 21 U/L (0-33); Albumin Level 3.1 g/dL (3.5-5.2); Alkaline Phosphatase 100 U/L (35-105); Aspartate Amino Transferase 34 U/L (0-32); Blood Urea Nitrogen 32 mg/dL (8-23); Calcium 8.1 mg/dL (8.5-10.5); Carbon Dioxide 18 mmol/L (22-29); Chloride 110 mmol/L (98-107); Creatinine Clr Calc Pharmacy 21.1041; Globulin 3.2 g/dL (1.3-4.6); Glucose 91 mg/dL (65-115); Osmolality Calculated 302 mOsm/kg (285-295); Sodium 143 mmol/L (136-145); Total Bilirubin 0.4 mg/dL (0.15-1.2); Total Protein 6.3 g/dL (6.6-8.7)
[2024-06-03 04:49] LABS: Chol HDL Ratio 2.29 mg/dL (0.0-4.40); Cholesterol 94 mg/dL (0-200); HDL Cholesterol 41 mg/dL (60-100); LDL Cholesterol Calculated 32 mg/dL (50-129); Magnesium 2.2 mg/dL (1.7-2.3); Triglycerides 104 mg/dL (0-150); VLDL Cholestrol Calculation 21 mg/dL (0-30)
[2024-06-03 04:50] LABS: Anion Gap 19.2 (5-19); Potassium 4.2 mmol/L (3.5-5.1)
[2024-06-03 05:01] LABS: Folate Level 6.7 ng/mL (4.8-37.3)
[2024-06-03] MEDS: piperacillin-tazobactam 3.375 GM in sodium chloride 0.9% (plus) 50 ML IV ×3 (05:28→20:58)
[2024-06-03] MEDS: sertraline 50 mg Tablet PO (05:29)
[2024-06-03] MEDS: apixaban 5 mg Tablet 2.5 MG PO ×2 (09:17→20:58)
[2024-06-03] MEDS: memantine 5 mg tablet 10 MG PO ×2 (09:17→18:15)
[2024-06-03] MEDS: pantoprazole DR 40 mg Tablet PO (09:17)
[2024-06-03] MEDS: azithromycin 250 mg Tablet 500 MG PO (09:17)
--- NOTE | 2024-06-03 10:57 | XR_ITS ---
WS: [id number] XR chest 1V portable [id number] REASON FOR EXAM: possible chf FINDINGS: The chest is unchanged compared to 06/01/2024. Moderate ectasia and tortuosity to the thoracic aorta. Moderate cardiomegaly. Enlarged left atrium with elevation of the left mainstem bronchus. Calcificati on of the mitral valve annulus. There is calcified granulomatous disease bilaterally. No acute pulmonary parenchymal or pleural abnormality is identified. XR/XR chest 1V portable [id number] IMPRESSION: Stable chest with moderate cardiomegaly and left atrial enlargement. No acute a bnormality.
[2024-06-03 11:22] LABS: Digoxin 1.2 ng/mL (0.6-1.2)
[2024-06-03 11:31] LABS: NT Pro B Type Natriuretic Pept 17107 pg/mL (0-450)
[2024-06-03] MEDS: digoxin 125 mcg Tablet PO (13:00)
[2024-06-03 13:04] LABS: Methicillin-Resist S.aureu PCR NOT DETECTED (NOT DETECTED)
--- NOTE | 2024-06-03 14:14 | P.PN_ITS ---
Subjective 2 Subjective: No acute events overnight. Seen with daughter at bedside. Patient is more awake and alert from yesterday. Able to have some conversation. She is alert to self, being in the hospital. Denies any nausea, vomiting. Tmax in last 24 hours 103 Fahrenheit last night. Vitals/I&O/Wt Last Vital Signs Temp 97.9 F 06/03/24 12:00 Pulse 112 H 06/03/24 13:00 Resp 20 H 06/03/24 12:00 BP 118/72 06/03/24 12:00 Pulse Ox 98 06/03/24 12:00 O2 Del Method Room Air 06/03/24 12:00 O2 Flow Rate 2 06/01/24 23:00 06/02/24 06/03/24 06/03/24 22:59 06:59 14:59 Intake Total 290 / 578.333 50 / 113.162 0402 / 1290 Output Total 800 / 800 Balance -510 / -221.667 50 / -100.809 6127 / 1290 Weight last 48 hrs Weight 54.431 kg Weight 54.431 kg Weight 53.977 kg Weight 53.977 kg Physical Exam 2 Narrative: General: No acute distress, AO x2 HEENT: PERRLA, pupils bilaterally equal and reactive, pallors not present Chest: Normal vesicular breath sounds, no added sounds, equal good air entry bilaterally CVS: S1-S2 regular, no murmurs, no tachycardia, no gallops, no rubs Abdomen: Soft, nontender, no organomegaly, bowel sounds present Neuro: No focal deficits, no facial deformity, AO x2, power 5/5 in all limbs Urinary Catheter Management: Amador: Cath Placed During This Visit: yes Reason for Continuing Indwelling Catheter: Accurate Measurement of Urinary Output in Critically Ill Patients Urinary Catheter Date of Insertion: 06/02/24 Urinary Catheter Time of Insertion: 06:03 Data 06/03/24 03:42 06/03/24 03:42 Micro: Microbiology 06/01/24 20:50 Urine Culture - Preliminary Urine,Clean Catch Gram Negative Rods Gram Negative Rods#2 06/01/24 21:31 Blood Culture - Preliminary Blood Escherichia coli 06/01/24 21:21 Blood Culture - Preliminary Blood Escherichia coli A&P Assessment and plan (1) Sepsis: SIRS: Tachycardic, Febrile, Leukocytosis Source: UTI End organ damage: Bacteremia, atrial fibrillation, JERRY Lactic acid within normal limits Patient did receive full 30 mL/kg BW. Monitor blood pressures. Keep mean artery pressure 65 mmHg. Follow-up blood culture, urine culture, MRSA swab, procalcitonin, urine Legionella, bacterial antigen. Check respiratory viral panel. Continue with IV Zosyn for now. De-escalate antibiotics as per culture results. (2) E coli bacteremia: Blood cultures from admission positive. Repeat blood cultures in AM. Most likely in setting of UTI. Check CT abdomen pelvis to rule out kidney stones or obstructive nephropathy. Continue with IV antibiotics as above. De-escalate as per culture sensitivities. Patient will need at least 14 days of antibiotics after first negative blood cultures. (3) Acute cystitis: (4) Atrial fibrillation with RVR: Chronic history. Blood pressure soft. Heart rate improving with hydration and resolution of fever. Digoxin level elevated up to 1.6 on admission. Hold off on digoxin for now. IV metoprolol 2.5 mg every 4 hours as needed for heart rate of more than 100 bpm. Hold off and systolic blood pressure less than 90 mmHg. Repeat digoxin level in AM. If needed can use amiodarone. Continue with home dose of Eliquis 2.5 mg twice daily given advanced age and renal functions (5) JERRY (acute kidney injury): Do not have baseline. Currently creatinine worsening to 1.3. Start on IV fluids at 50 cc/h. Medical requisition done for nephrotoxic drugs. Monitor BMP daily. Monitor electrolytes. (6) Pneumonia: (7) Altered mental status: Most likely encephalopathy in setting of bacteremia/infection with baseline vascular dementia. Continue to monitor. Aspiration and fall precaution. (8) Elevated digoxin level: (9) Vascular dementia: Plan CODE STATUS: Discussed with patient's daughter and primary caregiver daughter at [place] over the phone. They state patient is DNR/DNI. Cardiac diet. Watch for aspiration precaution. Protonix OPD prophylaxis Eliquis will be sufficient for DVT prophylaxis Discharge plan: Plan to discharge home with caregiver once patient is clinically stable. Plan for the day: Follow-up blood cultures. Continue with current IV antibiotics. De-escalate as per culture sensitivities. Repeat blood culture in a.m. Plan for antibiotics for over 14 days after negative blood cultures. Given fever curve high concerns for pyelonephritis. Appreciate CT abdomen pelvis results. No concern for obstructive nephropathy. Patient showing worsening creatinine up to 1.4. Appreciate input output. Check urine lites, urine creatinine. Patient did get CTA head and neck on admission. Patient remains on room air. Low concerns for CHF. Check proBNP, chest x-ray. Stop IV fluids. Cannot rule out CRS. Appreciate echocardiogram. Recheck digoxin levels. If normalizing will start on digoxin every other day. Monitor blood pressures. If remains stable will plan to start low-dose metoprolol in next 24 hours. Care discussed in detail with patient's daughter at bedside and over the phone. All the questions were answered. Attestations 2 Medical Necessity Statement*: Requires further hospitalization for management of gram-negative bacteremia in setting of cystitis and has concerns for pyelonephritis, A-fib with RVR, JERRY Diagnoses Sepsis A41.9 E coli bacteremia R78.81; B96.20 Acute cystitis N30.00 Atrial fibrillation with RVR I48.91 JERRY (acute kidney injury) N17.9 Pneumonia J18.9 Altered mental status R41.82 Elevated digoxin level R78.89 Vascular dementia F01.50
[2024-06-03 15:50] LABS: Blood Urea Nitrogen 28 mg/dL (8-23); Calcium 8.1 mg/dL (8.5-10.5); Carbon Dioxide 18 mmol/L (22-29); Chloride 105 mmol/L (98-107); Creatinine Clr Calc Pharmacy 24.6214; Glucose 96 mg/dL (65-115); Osmolality Calculated 289 mOsm/kg (285-295); Sodium 137 mmol/L (136-145)
--- NOTE | 2024-06-03 16:10 | PC.NURSE ---
patient spiked fever of over 102 and heart rate jumped to 178 but did not sustain there. Dr. Severino notified and ordered to give 1000mg acetaminophen IV once.
[2024-06-03] MEDS: acetaminophen 1,000 MG/100 ML PIGGYBACK 400 MG IV (16:26)
[2024-06-03] MEDS: donepezil 5 MG Tablet 10 MG PO (18:15)
[2024-06-03] MEDS: mirtazapine 15 mg Tablet PO (18:15)
[2024-06-04] VITALS (12 sets, daily range): BP systolic 119–136; BP diastolic 63–88; PULSE 72–113; RESP 19–25; TEMP 36.5–37.2; O2SAT 92–96; BMI 23.4
[2024-06-04] MEDS: piperacillin-tazobactam 3.375 GM in sodium chloride 0.9% (plus) 50 ML IV ×3 (05:21→20:35)
[2024-06-04] MEDS: sertraline 50 mg Tablet PO (05:21)
[2024-06-04 06:02] LABS: Urine Creatinine 93 mg/dL (28-217)
[2024-06-04 06:03] LABS: Potassium, Radom Urine 32 mmol/L; Urine Random Chloride 36 mmol/L; Urine Random Sodium 39 mmol/L
[2024-06-04 06:05] LABS: Basophils % 0.2 %; Eosinophils # 0.1 10^3/uL (0.0-0.8); Hematocrit 35.9 % (36-47); Lymphocytes # 1.5 10^3/uL (0.8-4.8); Lymphocytes % 15.7 %; Mean Corpuscular HGB Conc 30.9 g/dL (30-55); Mean Corpuscular Hemoglobin 28.1 pg (27-33); Mean Corpuscular Volume 90.9 fl (85-98); Mean Platelet Volume 12.4 fL (7.4-10.4); Monocytes # 0.8 10^3/uL (0.2-0.9); Neutrophils # 6.97 10^3/uL (1.8-7.7); Neutrophils % 74.1 %; Nucleated Red Blood Cells % 0 %; Platelet Count 127 10^3/cmm (157-399); Red Blood Count 3.95 10^6/uL (3.85-5.65); Red Cell Distribution Width 15.9 % (12.1-15.1); White Blood Count 9.39 10^3/uL (3.29-11.43)
[2024-06-04 06:23] LABS: Alanine Aminotransferase 24 U/L (0-33); Alkaline Phosphatase 88 U/L (35-105); Anion Gap 14.7 (5-19); Aspartate Amino Transferase 36 U/L (0-32); Blood Urea Nitrogen 24 mg/dL (8-23); Carbon Dioxide 18 mmol/L (22-29); Chloride 111 mmol/L (98-107); Creatinine Clr Calc Pharmacy 24.6214; Globulin 2.9 g/dL (1.3-4.6); Glucose 94 mg/dL (65-115); Magnesium 2.2 mg/dL (1.7-2.3); Osmolality Calculated 294 mOsm/kg (285-295); Potassium 3.7 mmol/L (3.5-5.1); Sodium 140 mmol/L (136-145); Total Bilirubin 0.5 mg/dL (0.15-1.2); Total Protein 5.9 g/dL (6.6-8.7)
[2024-06-04] MEDS: memantine 5 mg tablet 10 MG PO ×2 (08:09→18:25)
[2024-06-04] MEDS: azithromycin 250 mg Tablet 500 MG PO (08:09)
[2024-06-04] MEDS: apixaban 5 mg Tablet 2.5 MG PO ×2 (08:09→20:35)
[2024-06-04] MEDS: pantoprazole DR 40 mg Tablet PO (08:09)
[2024-06-04] MEDS: metoprolol tartrate 25 mg Tablet PO ×2 (12:42→20:35)
--- NOTE | 2024-06-04 12:56 | PM.PN ---
Subjective Subjective: No acute events overnight. Patient has remained hemodynamically stable and afebrile. Seen with daughter at bedside. Patient is more awake and alert. As per daughter patient seems to be doing better. Tmax in last 24 hours 101 .4 Fahrenheit. Fever curve seems to be improving. Vitals/I&O/Wt Last Vital Signs Temp 97.7 F 06/04/24 08:59 Pulse 113 H 06/04/24 08:59 Resp 19 H 06/04/24 08:59 BP 119/88 06/04/24 08:59 Pulse Ox 96 06/04/24 08:59 O2 Del Method Nasal Cannula 06/04/24 03:12 O2 Flow Rate 2 06/04/24 03:12 06/03/24 06/04/24 06/04/24 22:59 06:59 14:59 Intake Total 390 / 1920 290 / 2210 290 / 290 Output Total 400 / 400 850 / 1250 Balance -10 / 1520 -560 / 960 290 / 290 Weight last 48 hrs Weight 54.431 kg Weight 54.431 kg Physical Exam Narrative: General: No acute distress, AO x2 HEENT: PERRLA, pupils bilaterally equal and reactive, pallors not present Chest: Normal vesicular breath sounds, no added sounds, equal good air entry bilaterally CVS: S1-S2 regular, no murmurs, no tachycardia, no gallops, no rubs Abdomen: Soft, nontender, no organomegaly, bowel sounds present Neuro: No focal deficits, no facial deformity, AO x2, power 5/5 in all limbs Urinary Catheter Management: Amador: Cath Placed During This Visit: yes Reason for Continuing Indwelling Catheter: Acute Urinary Retention or Obstruction Urinary Catheter Date of Insertion: 06/02/24 Urinary Catheter Time of Insertion: 06:03 Quick SOFA Score: Respiratory Rate: 19 Blood Pressure: 119/88 [place] Coma Scale: 14 qSOFA Score: 1 If qSOFA score 2 or greater, continue: Blood Pressure Mean: 98 Bilirubin (mg/dl): 0.5 Platelets (x10?/ml): 127 Creatinine (mg/dl): 1.2 Evaluation: Current stage of sepsis: sepsis Sepsis stage criteria used: [facility] Sep-1 and Sepsis-3 Crystalloid fluids: 30 mL/kg crystalloid fluids ordered and initiated within 3 hours Blood cultures ordered: Yes Possible source: genitourinary Focused Exam: Vital signs: Temp Pulse Resp BP Pulse Ox O2 Del Method O2 Flow Rate 06/04/24 08:59 97.7 F 113 H 19 H 119/88 96 06/04/24 08:00 97.7 F 113 H 19 H 119/88 06/04/24 06:00 105 H 06/04/24 03:12 83 21 H 124/63 95 Nasal Cannula 2 Date exam was performed: 06/04/24 Time exam was performed: 13:11 Sepsis Screen No Definite Risk 06/01/24 23:30 Respiratory Rate 19 breaths/min H (12 - 18) 06/04/24 08:59 Blood Pressure 119/88 mmHg 06/04/24 08:59 Joe Coma Scale Score 14 06/04/24 08:00 Quick SOFA Score 2 06/02/24 13:23 SOFA Score: Joe Coma Scale Score 14 06/04/24 08:00 Blood Pressure Mean 98 mmHg 06/04/24 08:59 Total Bilirubin 0.5 mg/dL (0.15-1.2) 06/04/24 05:50 Platelet Count 127 10^3/cmm (157-399) L 06/04/24 05:50 Creatinine 1.2 mg/dL (0.5-0.9) H 06/04/24 05:50 SOFA Score 6 06/02/24 13:23 Data 06/04/24 05:50 06/04/24 05:50 Micro: Microbiology 06/01/24 20:50 Urine Culture - Preliminary Urine,Clean Catch Gram Negative Rods Gram Negative Rods#2 06/04/24 05:45 Blood Culture - Preliminary Blood SPECIMEN COLLECTED 06/04/24 05:50 Blood Culture - Preliminary Blood SPECIMEN COLLECTED A&P Assessment and plan (1) Sepsis: SIRS: Tachycardic, Febrile, Leukocytosis Source: UTI End organ damage: Bacteremia, atrial fibrillation, JERRY Lactic acid within normal limits Patient did receive full 30 mL/kg BW. Monitor blood pressures. Keep mean artery pressure 65 mmHg. Follow-up blood culture, urine culture, MRSA swab, procalcitonin, urine Legionella, bacterial antigen. Check respiratory viral panel. Continue with IV Zosyn for now. De-escalate antibiotics as per culture results. (2) E coli bacteremia: Blood cultures from admission positive. Repeat blood cultures in AM. Most likely in setting of UTI. Check CT abdomen pelvis to rule out kidney stones or obstructive nephropathy. Continue with IV antibiotics as above. De-escalate as per culture sensitivities. Patient will need at least 14 days of antibiotics after first negative blood cultures. (3) Acute cystitis: (4) Atrial fibrillation with RVR: Chronic history. Blood pressure soft. Heart rate improving with hydration and resolution of fever. Digoxin level elevated up to 1.6 on admission. Hold off on digoxin for now. IV metoprolol 2.5 mg every 4 hours as needed for heart rate of more than 100 bpm. Hold off and systolic blood pressure less than 90 mmHg. Repeat digoxin level in AM. If needed can use amiodarone. Continue with home dose of Eliquis 2.5 mg twice daily given advanced age and renal functions (5) JERRY (acute kidney injury): Do not have baseline. Currently creatinine worsening to 1.3. Start on IV fluids at 50 cc/h. Medical requisition done for nephrotoxic drugs. Monitor BMP daily. Monitor electrolytes. (6) Pneumonia: (7) Altered mental status: Most likely encephalopathy in setting of bacteremia/infection with baseline vascular dementia. Continue to monitor. Aspiration and fall precaution. (8) Elevated digoxin level: (9) Vascular dementia: Plan CODE STATUS: Discussed with patient's daughter and primary caregiver daughter at [place] over the phone. They state patient is DNR/DNI. Cardiac diet. Watch for aspiration precaution. Protonix OPD prophylaxis Eliquis will be sufficient for DVT prophylaxis Discharge plan: Plan to discharge home with caregiver once patient is clinically stable. Plan for the day: Continue follow-up blood culture and urine culture. Blood cultures from admission growing E. coli. Sensitivities pending. Repeat blood culture sent on 06/04. Urine culture growing 2 separate gram-negative's. Identification awaited. For now continue with current IV antibiotics. Heart rate slightly elevated. Add metoprolol 25 mg twice daily. Blood pressures improving. Continue with digoxin every other day. Renal function stable. Continue with holding off on IV fluids or diuretics for now. Patient remains on room air. Stable thrombocytopenia. Physical therapy evaluation. Care discussed in detail with patient's daughter at bedside and over the phone. All the questions were answered. Attestations Medical Necessity Statement*: Requires further hospitalization for management of E. coli bacteremia in setting of UTI cystitis while outpatient antibiotics are set up, A-fib with RVR Diagnoses Sepsis A41.9 E coli bacteremia R78.81; B96.20 Acute cystitis N30.00 Atrial fibrillation with RVR I48.91 JERRY (acute kidney injury) N17.9 Pneumonia J18.9 Altered mental status R41.82 Elevated digoxin level R78.89 Vascular dementia F01.50
[2024-06-04] MEDS: donepezil 5 MG Tablet 10 MG PO (18:25)
[2024-06-04] MEDS: mirtazapine 15 mg Tablet PO (18:25)
[2024-06-05] VITALS (10 sets, daily range): BP systolic 105–136; BP diastolic 64–85; PULSE 84–110; RESP 18–25; TEMP 36.5–37.2; O2SAT 93–98
[2024-06-05 04:12] LABS: Basophils % 0.4 %; Eosinophils # 0.2 10^3/uL (0.0-0.8); Eosinophils % 2.2 %; Hematocrit 33.3 % (36-47); Lymphocytes # 2.3 10^3/uL (0.8-4.8); Mean Corpuscular HGB Conc 30.6 g/dL (30-55); Mean Corpuscular Volume 91.5 fl (85-98); Mean Platelet Volume 12.3 fL (7.4-10.4); Monocytes # 0.9 10^3/uL (0.2-0.9); Monocytes % 9.6 %; Neutrophils # 5.58 10^3/uL (1.8-7.7); Neutrophils % 60.5 %; Nucleated Red Blood Cells % 0 %; Platelet Count 136 10^3/cmm (157-399); Red Blood Count 3.64 10^6/uL (3.85-5.65); Red Cell Distribution Width 15.9 % (12.1-15.1); White Blood Count 9.23 10^3/uL (3.29-11.43)
[2024-06-05 04:30] LABS: Alanine Aminotransferase 22 U/L (0-33); Albumin Level 2.7 g/dL (3.5-5.2); Alkaline Phosphatase 74 U/L (35-105); Anion Gap 14.5 (5-19); Aspartate Amino Transferase 34 U/L (0-32); Blood Urea Nitrogen 18 mg/dL (8-23); Carbon Dioxide 20 mmol/L (22-29); Chloride 107 mmol/L (98-107); Creatinine Clr Calc Pharmacy 22.7274; Globulin 2.6 g/dL (1.3-4.6); Glucose 87 mg/dL (65-115); Osmolality Calculated 287 mOsm/kg (285-295); Potassium 3.5 mmol/L (3.5-5.1); Sodium 138 mmol/L (136-145); Total Bilirubin 0.4 mg/dL (0.15-1.2); Total Protein 5.3 g/dL (6.6-8.7)
[2024-06-05] MEDS: sertraline 50 mg Tablet PO (05:18)
[2024-06-05] MEDS: piperacillin-tazobactam 3.375 GM in sodium chloride 0.9% (plus) 50 ML IV ×3 (05:18→20:14)
[2024-06-05] MEDS: memantine 5 mg tablet 10 MG PO ×2 (08:59→20:12)
[2024-06-05] MEDS: digoxin 125 mcg Tablet PO (08:59)
[2024-06-05] MEDS: apixaban 5 mg Tablet 2.5 MG PO ×2 (08:59→20:13)
[2024-06-05] MEDS: metoprolol tartrate 25 mg Tablet PO ×2 (08:59→20:14)
[2024-06-05] MEDS: pantoprazole DR 40 mg Tablet PO (08:59)
--- NOTE | 2024-06-05 12:35 | P.PN_ITS ---
Subjective 2 Subjective: No acute events overnight. Patient has remained hemodynamically stable and afebrile. Tmax afebrile last 24 hours. Seen with daughter at bedside. Patient worked with physical therapy today. As per daughter she did have a restless night because was being disturbed every few hours. Vitals/I&O/Wt Last Vital Signs Temp 97.7 F 06/05/24 12:00 Pulse 90 06/05/24 12:00 Resp 25 H 06/05/24 12:00 BP 108/76 06/05/24 12:00 Pulse Ox 93 06/05/24 04:00 O2 Del Method Room Air 06/05/24 04:00 O2 Flow Rate 2 06/04/24 03:12 06/04/24 06/05/24 06/05/24 22:59 06:59 14:59 Intake Total 150 / 680 290 / 970 50 / 50 Output Total 200 / 550 Balance -50 / 130 290 / 420 50 / 50 Weight last 48 hrs Weight 57.606 kg Weight 54.431 kg Physical Exam 2 Narrative: General: No acute distress, AO x2 HEENT: PERRLA, pupils bilaterally equal and reactive, pallors not present Chest: Normal vesicular breath sounds, no added sounds, equal good air entry bilaterally CVS: S1-S2 regular, no murmurs, no tachycardia, no gallops, no rubs Abdomen: Soft, nontender, no organomegaly, bowel sounds present Neuro: No focal deficits, no facial deformity, AO x2, power 5/5 in all limbs Urinary Catheter Management: Amador: Cath Placed During This Visit: yes, but has since been removed by the nurse Reason for Continuing Indwelling Catheter: Decision to DC Catheter Urinary Catheter Date of Insertion: 06/02/24 Urinary Catheter Time of Insertion: 06:03 Date Urinary Catheter Removed: 06/05/24 Time Urinary Catheter Discontinued: 05:45 Data 06/05/24 03:54 06/05/24 03:54 Micro: Microbiology 06/04/24 05:50 Blood Culture - Preliminary Blood NEGATIVE TO DATE 06/04/24 05:45 Blood Culture - Preliminary Blood NEGATIVE TO DATE 06/01/24 21:21 Blood Culture - Preliminary Blood Escherichia coli 06/01/24 20:50 Urine Culture - Preliminary Urine,Clean Catch Gram Negative Rods Gram Negative Rods#2 A&P Assessment and plan (1) Sepsis: SIRS: Tachycardic, Febrile, Leukocytosis Source: UTI End organ damage: Bacteremia, atrial fibrillation, JERRY Lactic acid within normal limits Patient did receive full 30 mL/kg BW. Monitor blood pressures. Keep mean artery pressure 65 mmHg. Follow-up blood culture, urine culture, MRSA swab, procalcitonin, urine Legionella, bacterial antigen. Check respiratory viral panel. Continue with IV Zosyn for now. De-escalate antibiotics as per culture results. (2) E coli bacteremia: Blood cultures from admission positive. Repeat blood cultures in AM. Most likely in setting of UTI. Check CT abdomen pelvis to rule out kidney stones or obstructive nephropathy. Continue with IV antibiotics as above. De-escalate as per culture sensitivities. Patient will need at least 14 days of antibiotics after first negative blood cultures. (3) Acute cystitis: (4) Atrial fibrillation with RVR: Chronic history. Blood pressure soft. Heart rate improving with hydration and resolution of fever. Digoxin level elevated up to 1.6 on admission. Hold off on digoxin for now. IV metoprolol 2.5 mg every 4 hours as needed for heart rate of more than 100 bpm. Hold off and systolic blood pressure less than 90 mmHg. Repeat digoxin level in AM. If needed can use amiodarone. Continue with home dose of Eliquis 2.5 mg twice daily given advanced age and renal functions (5) JERRY (acute kidney injury): Do not have baseline. Currently creatinine worsening to 1.3. Start on IV fluids at 50 cc/h. Medical requisition done for nephrotoxic drugs. Monitor BMP daily. Monitor electrolytes. (6) Pneumonia: (7) Altered mental status: Most likely encephalopathy in setting of bacteremia/infection with baseline vascular dementia. Continue to monitor. Aspiration and fall precaution. (8) Elevated digoxin level: (9) Vascular dementia: Plan CODE STATUS: Discussed with patient's daughter and primary caregiver daughter at [facility] over the phone. They state patient is DNR/DNI. Cardiac diet. Watch for aspiration precaution. Protonix OPD prophylaxis Eliquis will be sufficient for DVT prophylaxis Discharge plan: Plan to discharge home with caregiver once patient is clinically stable. Plan for the day: Repeat blood culture from 06/04 so far negative. Appreciate blood culture sensitivities. Sensitive to ceftriaxone and Levaquin. As patient has had multiple episodes of UTI recently along with fluctuant renal functions for now we will plan to finish a 14-day course of IV ceftriaxone from 06/04. PICC line placement. Check digoxin level in AM. Continue with digoxin every other day and metoprolol 25 mg twice daily. Complaining of dizziness on sitting up. Check orthostatic blood pressures. Discharge plan: Plan to discharge home with home health once IV antibiotics with ceftriaxone is set up. Care discussed in detail with patient's daughter at bedside and over the phone. All the questions were answered. Attestations 2 Medical Necessity Statement*: Requires further hospitalization for management of E. coli bacteremia in setting of UTI while outpatient antibiotics are set up Diagnoses Sepsis A41.9 E coli bacteremia R78.81; B96.20 Acute cystitis N30.00 Atrial fibrillation with RVR I48.91 JERRY (acute kidney injury) N17.9 Pneumonia J18.9 Altered mental status R41.82 Elevated digoxin level R78.89 Vascular dementia F01.50
[2024-06-05] MEDS: donepezil 5 MG Tablet 10 MG PO (20:13)
[2024-06-05] MEDS: mirtazapine 15 mg Tablet PO (20:14)
[2024-06-06] VITALS (9 sets, daily range): BP systolic 93–154; BP diastolic 58–94; PULSE 75–95; RESP 18–28; TEMP 36.6–37.1; O2SAT 92–96
[2024-06-06] MEDS: piperacillin-tazobactam 3.375 GM in sodium chloride 0.9% (plus) 50 ML IV ×2 (04:14→13:31)
[2024-06-06 05:10] LABS: Basophils % 0.5 %; Eosinophils # 0.2 10^3/uL (0.0-0.8); Eosinophils % 2.2 %; Hematocrit 33.6 % (36-47); Lymphocytes # 2.7 10^3/uL (0.8-4.8); Lymphocytes % 32.8 %; Mean Corpuscular HGB Conc 31.3 g/dL (30-55); Mean Corpuscular Hemoglobin 28.2 pg (27-33); Mean Corpuscular Volume 90.1 fl (85-98); Monocytes # 0.7 10^3/uL (0.2-0.9); Neutrophils # 4.18 10^3/uL (1.8-7.7); Neutrophils % 51.5 %; Nucleated Red Blood Cells % 0 %; Platelet Count 150 10^3/cmm (157-399); Red Blood Count 3.73 10^6/uL (3.85-5.65); Red Cell Distribution Width 15.7 % (12.1-15.1); White Blood Count 8.13 10^3/uL (3.29-11.43)
[2024-06-06 05:29] LABS: Alanine Aminotransferase 19 U/L (0-33); Albumin Level 2.7 g/dL (3.5-5.2); Alkaline Phosphatase 71 U/L (35-105); Anion Gap 13.5 (5-19); Aspartate Amino Transferase 22 U/L (0-32); Blood Urea Nitrogen 14 mg/dL (8-23); Calcium 8.1 mg/dL (8.5-10.5); Carbon Dioxide 22 mmol/L (22-29); Chloride 110 mmol/L (98-107); Creatinine Clr Calc Pharmacy 27.5734; Globulin 2.7 g/dL (1.3-4.6); Glucose 78 mg/dL (65-115); Osmolality Calculated 293 mOsm/kg (285-295); Potassium 3.5 mmol/L (3.5-5.1); Sodium 142 mmol/L (136-145); Total Bilirubin 0.3 mg/dL (0.15-1.2); Total Protein 5.4 g/dL (6.6-8.7)
[2024-06-06] MEDS: sertraline 50 mg Tablet PO (08:46)
[2024-06-06] MEDS: memantine 5 mg tablet 10 MG PO ×2 (08:46→20:41)
[2024-06-06] MEDS: pantoprazole DR 40 mg Tablet PO (08:46)
[2024-06-06] MEDS: metoprolol tartrate 25 mg Tablet PO ×2 (08:46→20:41)
[2024-06-06] MEDS: apixaban 5 mg Tablet 2.5 MG PO ×2 (08:46→20:40)
--- NOTE | 2024-06-06 09:19 | XRR_ITS ---
PROCEDURE INFORMATION: Exam: XR Chest Exam date and time: 06/06/2024 10:21 AM Age: 89 years old Clinical indication: Device placement; Picc; Additional info: Picc line placement. , I will call when ready. TECHNIQUE: Imaging protocol: Radiologic exam of the chest. Views: 1 view. COMPARISON: CR XR chest 1V portable [id number] 06/03/2024 11:07 AM FINDINGS: Tubes, catheters and devices: PICC from the right arm with the tip in the distal SVC in satisfactory position. Lungs: Unremarkable. No consolidation or mass. Pleural spaces: Unremarkable. No pleural effusion. No pneumothorax. Heart/Mediastinum: Prominent cardiomegaly is noted. Bones/joints: Unremarkable. XR/XR chest 1V portable [id number] IMPRESSION: Good PICC positioning
--- NOTE | 2024-06-06 14:29 | P.PN_ITS ---
Subjective 2 Subjective: No acute events overnight. Patient has remained hemodynamically stable and afebrile. Seen with daughter at bedside. Patient is more awake and alert. Vitals/I&O/Wt Last Vital Signs Temp 97.8 F 06/06/24 12:00 Pulse 77 06/06/24 12:00 Resp 22 H 06/06/24 12:00 BP 122/74 06/06/24 12:00 Pulse Ox 92 06/06/24 09:02 O2 Del Method Room Air 06/06/24 07:43 O2 Flow Rate 2 06/04/24 03:12 06/05/24 06/06/24 06/06/24 22:59 06:59 14:59 Intake Total 290 / 340 290 / 630 290 / 290 Balance 290 / 340 290 / 630 290 / 290 Weight last 48 hrs Weight 57.691 kg Weight 57.606 kg Physical Exam 2 Narrative: General: No acute distress, AO x2 HEENT: PERRLA, pupils bilaterally equal and reactive, pallors not present Chest: Normal vesicular breath sounds, no added sounds, equal good air entry bilaterally CVS: S1-S2 regular, no murmurs, no tachycardia, no gallops, no rubs Abdomen: Soft, nontender, no organomegaly, bowel sounds present Neuro: No focal deficits, no facial deformity, AO x2, power 5/5 in all limbs Urinary Catheter Management: Amador: Cath Placed During This Visit: yes, but has since been removed by the nurse Reason for Continuing Indwelling Catheter: Decision to DC Catheter Urinary Catheter Date of Insertion: 06/02/24 Urinary Catheter Time of Insertion: 06:03 Date Urinary Catheter Removed: 06/05/24 Time Urinary Catheter Discontinued: 05:45 Data 06/06/24 03:46 06/06/24 03:46 Micro: Microbiology 06/01/24 20:50 Urine Culture - Final Urine,Clean Catch Escherichia coli Klebsiella pneumoniae A&P Assessment and plan (1) Sepsis: SIRS: Tachycardic, Febrile, Leukocytosis Source: UTI End organ damage: Bacteremia, atrial fibrillation, JERRY Lactic acid within normal limits Patient did receive full 30 mL/kg BW. Monitor blood pressures. Keep mean artery pressure 65 mmHg. Follow-up blood culture, urine culture, MRSA swab, procalcitonin, urine Legionella, bacterial antigen. Check respiratory viral panel. Continue with IV Zosyn for now. De-escalate antibiotics as per culture results. (2) E coli bacteremia: Blood cultures from admission positive. Repeat blood cultures in AM. Most likely in setting of UTI. Check CT abdomen pelvis to rule out kidney stones or obstructive nephropathy. Continue with IV antibiotics as above. De-escalate as per culture sensitivities. Patient will need at least 14 days of antibiotics after first negative blood cultures. (3) Acute cystitis: (4) Atrial fibrillation with RVR: Chronic history. Blood pressure soft. Heart rate improving with hydration and resolution of fever. Digoxin level elevated up to 1.6 on admission. Hold off on digoxin for now. IV metoprolol 2.5 mg every 4 hours as needed for heart rate of more than 100 bpm. Hold off and systolic blood pressure less than 90 mmHg. Repeat digoxin level in AM. If needed can use amiodarone. Continue with home dose of Eliquis 2.5 mg twice daily given advanced age and renal functions (5) JERRY (acute kidney injury): Do not have baseline. Currently creatinine worsening to 1.3. Start on IV fluids at 50 cc/h. Medical requisition done for nephrotoxic drugs. Monitor BMP daily. Monitor electrolytes. (6) Pneumonia: (7) Altered mental status: Most likely encephalopathy in setting of bacteremia/infection with baseline vascular dementia. Continue to monitor. Aspiration and fall precaution. (8) Elevated digoxin level: (9) Vascular dementia: Plan CODE STATUS: Discussed with patient's daughter and primary caregiver daughter at [facility] over the phone. They state patient is DNR/DNI. Cardiac diet. Watch for aspiration precaution. Protonix OPD prophylaxis Eliquis will be sufficient for DVT prophylaxis Discharge plan: Plan to discharge home with caregiver once patient is clinically stable. Plan for the day: Appreciate blood culture and urine culture. Urine culture growing E. coli and Klebsiella. All sensitive to ceftriaxone. Stop Zosyn. Switch to IV ceftriaxone. PICC line placement. Appreciate digoxin level. Orthostatic negative. Continue with metoprolol 25 mg twice daily. Discharge plan: Plan to discharge home with home health once IV antibiotics with ceftriaxone is set up. Care discussed in detail with patient's daughter at bedside and over the phone. All the questions were answered. Attestations 2 Medical Necessity Statement*: Requires further hospitalization for management of E. coli bacteremia in setting of UTI, A-fib with RVR in a patient with baseline advanced dementia Diagnoses Sepsis A41.9 E coli bacteremia R78.81; B96.20 Acute cystitis N30.00 Atrial fibrillation with RVR I48.91 JERRY (acute kidney injury) N17.9 Pneumonia J18.9 Altered mental status R41.82 Elevated digoxin level R78.89 Vascular dementia F01.50
[2024-06-06] MEDS: cefTRIAXone 1,000 mg SDV 1000 MG IVP (15:50)
[2024-06-06] MEDS: donepezil 5 MG Tablet 10 MG PO (20:41)
[2024-06-06] MEDS: mirtazapine 15 mg Tablet PO (20:42)
[2024-06-07] VITALS: BP 143/94; PULSE 88; RESP 18; TEMP 36.6; O2SAT 94
[2024-06-07 03:11] VITALS: BP 128/79; PULSE 91; RESP 20; O2SAT 94
[2024-06-07 03:35] LABS: Basophils # 0.1 10^3/uL (0.0-0.1); Basophils % 0.7 %; Eosinophils # 0.3 10^3/uL (0.0-0.8); Hematocrit 31.1 % (36-47); Lymphocytes # 3.1 10^3/uL (0.8-4.8); Lymphocytes % 34.7 %; Mean Corpuscular HGB Conc 31.2 g/dL (30-55); Mean Corpuscular Hemoglobin 28.6 pg (27-33); Mean Corpuscular Volume 91.7 fl (85-98); Mean Platelet Volume 12.8 fL (7.4-10.4); Monocytes # 0.6 10^3/uL (0.2-0.9); Monocytes % 6.8 %; Neutrophils % 50.1 %; Nucleated Red Blood Cells % 0 %; Platelet Count 166 10^3/cmm (157-399); Red Blood Count 3.39 10^6/uL (3.85-5.65); Red Cell Distribution Width 15.6 % (12.1-15.1); White Blood Count 8.97 10^3/uL (3.29-11.43)
[2024-06-07 04:01] LABS: Alanine Aminotransferase 17 U/L (0-33); Albumin Level 2.8 g/dL (3.5-5.2); Alkaline Phosphatase 72 U/L (35-105); Aspartate Amino Transferase 21 U/L (0-32); Blood Urea Nitrogen 16 mg/dL (8-23); Calcium 8.1 mg/dL (8.5-10.5); Carbon Dioxide 22 mmol/L (22-29); Chloride 111 mmol/L (98-107); Creatinine Clr Calc Pharmacy 27.5734; Globulin 2.7 g/dL (1.3-4.6); Glucose 82 mg/dL (65-115); Osmolality Calculated 300 mOsm/kg (285-295); Sodium 145 mmol/L (136-145); Total Bilirubin 0.2 mg/dL (0.15-1.2); Total Protein 5.5 g/dL (6.6-8.7)
[2024-06-07 04:02] LABS: Anion Gap 15.6 (5-19); Potassium 3.6 mmol/L (3.5-5.1)
[2024-06-07 05:56] VITALS: PULSE 87
[2024-06-07 07:45] VITALS: BP 138/94; PULSE 80; RESP 22; TEMP 36.9; O2SAT 97
[2024-06-07 09:16] VITALS: PULSE 74
[2024-06-07] MEDS: metoprolol tartrate 25 mg Tablet PO (09:16)
[2024-06-07] MEDS: digoxin 125 mcg Tablet PO (09:16)
[2024-06-07] MEDS: pantoprazole DR 40 mg Tablet PO (09:16)
[2024-06-07] MEDS: apixaban 5 mg Tablet 2.5 MG PO (09:16)
[2024-06-07] MEDS: sertraline 50 mg Tablet PO (09:16)
[2024-06-07 11:30] VITALS: BP 138/77; PULSE 102; RESP 22; TEMP 36.9; O2SAT 96
--- NOTE | 2024-06-07 12:44 | P.DS_ITS ---
Discharge Providers Date of Admission: 06/01/24 22:15 Date of Discharge: June 07, 2024 Attending Provider at Admission: Margarita Viveros MD Attending Provider at Discharge: Evans Severino MD Diagnoses at Discharge Discharge Diagnosis (1) Sepsis: Status: Acute (2) E coli bacteremia: Status: Acute (3) Acute cystitis: Status: Acute (4) Atrial fibrillation with RVR: Status: Acute (5) JERRY (acute kidney injury): Status: Acute (6) Pneumonia: Status: Acute (7) Altered mental status: Status: Acute (8) Elevated digoxin level: Status: Acute (9) Vascular dementia: Status: Acute Reason for Visit Reason for Visit: AMS Brief History: History as per HPI: Reyna Romano is a 89 year old female with known H/o vascular dementia,h/o prior strokes, currently at baseline mentation, A fib on a/c with Eliquis brought to the ER by daughter with c/o fever, generalized weakness and malaise. Symptoms started approximately 24 hrs ago. She was noted to be tachycardic, and brought by daughter to ER due to concern for A fib. Patient correctly states her name recognizes her daughter and the fact she is not at home. She denies any chest or abdominal pain. C/o 1 episode of vomiting today. No c/o diarrhea. No c/o dysuria. Hospital Course Hospital Course Patient was admitted to the hospital further evaluation and management of sepsis in setting of UTI along with atrial fibrillation. She was started on broad- spectrum IV antibiotics along with IV hydration. Her heart rate was maintained with IV metoprolol. Blood cultures during hospitalization came back positive for E. coli. Urine culture positive for E. coli and Klebsiella. Repeat blood culture from 06/04 have so far been negative. Blood work from admission showed supratherapeutic digoxin levels for which digoxin dose has been changed. Repeat levels have been stable. She has been discharged in hemodynamically stable condition on IV ceftriaxone 1 g daily for overall 14 days from 06/04. Her dose of digoxin has been changed to every other day and metoprolol 5 mg twice daily has been added to her medication list. Home health has been arranged. Care discussed in detail with patient's daughters at bedside. All the questions were answered. Physical Exam Narrative: General: No acute distress, AO x 1-2 HEENT: PERRLA, pupils bilaterally equal and reactive, pallors not present Chest: Normal vesicular breath sounds, no added sounds, equal good air entry bilaterally CVS: S1-S2 regular, no murmurs, no tachycardia, no gallops, no rubs Abdomen: Soft, nontender, no organomegaly, bowel sounds present Neuro: No focal deficits, no facial deformity, AO x2, power 5/5 in all limbs Urinary Catheter Management: Amador: Cath Placed During This Visit: yes, but has since been removed by the nurse Reason for Continuing Indwelling Catheter: Decision to DC Catheter Urinary Catheter Date of Insertion: 06/02/24 Urinary Catheter Time of Insertion: 06:03 Date Urinary Catheter Removed: 06/05/24 Time Urinary Catheter Discontinued: 05:45 Discharge Data Studies Completed and Pending Completed Studies During Hospitalization Category Date Time Status CT abdomen pelvis wo con [id number] Routine Cat Scan 06/02/24 12:[address] head wo con* [id number] Stat Cat Scan 06/01/24 20:06 Completed CTA head neck [CT angio headneck* 72832/48095] Stat Cat Scan 06/01/24 20:39 Completed CXRP [XR chest 1V portable [id number]] Routine Exams 06/06/24 09:19 Completed XR chest 1V portable [id number] Routine Exams 06/03/24 10:57 Completed XR chest 1V portable [id number] Stat Exams 06/01/24 20:06 Completed CV. echo complete* [id number] Routine Ultrasound 06/02/24 12:13 Completed Pending at discharge Category Date Time Status Blood Culture AM LABS Lab 06/04/24 05:45 Results Blood Culture Stat Lab 06/01/24 21:31 Results Radiology Impressions Head CT 06/01/24 20:06 IMPRESSION: Hypoattenuation within the left parieto-occipital lobe concerning for infarct. Encephalomalacia within anterior left frontal lobe. Moderate microangiopathy with global cerebral volume loss. COMMENT: THIS REPORT CONTAINS FINDINGS THAT MAY BE CRITICAL TO PATIENT CARE. The exam findings were verbally communicated by me to CONRAD VELASQUEZ via telephone conference at 8:37 PM CDT on 06/01/2024. The findings were acknowledged and understood. Head/Neck CTA 06/01/24 20:39 IMPRESSION: 1. No large vessel stenosis or occlusion is seen. 2. Hypoattenuation within the left parieto-occipital lobe concerning for infarction. 3. Encephalomalacia within anterior left frontal lobe. Moderate microangiopathy with global cerebral volume loss. IMPRESSION: 1. No stenosis or occlusion. 2. Moderate atherosclerotic calcifications of the carotid bifurcations and proximal internal carotid arteries without significant stenosis. REFERENCES: NASCET CRITERIA. The degree of stenosis in the cervical segment of the internal carotid artery is based on NASCET criteria. Normal is no stenosis. Mild is less than 50% stenosis. Moderate is 50-69% stenosis. Severe is 70% to 99% stenosis. Total occlusion is no detectable patent lumen. Abdomen/Pelvis CT 06/02/24 12:22 IMPRESSION: 1. Mild wall thickening in the urinary bladder which is decompressed with a Amador catheter. Cystitis is not excluded. Clinical correlation recommended. 2. Gaseous distension of the colon, most likely ileus. 3. Small pleural effusions. Chest X-Ray 06/06/24 09:19 IMPRESSION: Good PICC positioning Microbiology 06/01/24 20:50 Urine,Clean Catch Urine Culture - Final Escherichia coli Klebsiella pneumoniae 06/04/24 05:50 Blood Blood Culture - Preliminary NEGATIVE TO DATE 06/04/24 05:45 Blood Blood Culture - Preliminary NEGATIVE TO DATE 06/01/24 21:21 Blood Blood Culture - Preliminary Escherichia coli 06/01/24 21:31 Blood Blood Culture - Preliminary Escherichia coli Echocardiogram: CONCLUSIONS LV systolic function is normal with EF of 60 to 65%. Left atrial dilation Mild mitral regurgitation Mild to moderate aortic regurgitation Moderate tricuspid regurgitation No comparison studies are available. Prashant Shetty MD (Electronically Signed) Final Date: 02 June 2024 16:52 Laboratory Results WBC 8.97 10^3/uL (3.29-11.43) 06/07/24 02:20 RBC 3.39 10^6/uL (3.85-5.65) L 06/07/24 02:20 Hgb 9.70 g/dL (11.27-16.99) L 06/07/24 02:20 Hct 31.1 % (36-47) L 06/07/24 02:20 MCV 91.7 fl (85-98) 06/07/24 02:20 MCH 28.6 pg (27-33) 06/07/24 02:20 MCHC 31.2 g/dL (30-55) 06/07/24 02:20 RDW 15.6 % (12.1-15.1) H 06/07/24 02:20 Plt Count 166 10^3/cmm (157-399) 06/07/24 02:20 MPV 12.8 fL (7.4-10.4) H 06/07/24 02:20 Neut % (Auto) 50.1 % 06/07/24 02:20 Lymph % (Auto) 34.7 % 06/07/24 02:20 [place] % (Auto) 6.8 % 06/07/24 02:20 Eos % (Auto) 3.0 % 06/07/24 02:20 Baso % (Auto) 0.7 % 06/07/24 02:20 Neut # (Auto) 4.50 10^3/uL (1.8-7.7) 06/07/24 02:20 Lymph # (Auto) 3.1 10^3/uL (0.8-4.8) 06/07/24 02:20 [place] # (Auto) 0.6 10^3/uL (0.2-0.9) 06/07/24 02:20 Eos # (Auto) 0.3 10^3/uL (0.0-0.8) 06/07/24 02:20 Baso # (Auto) 0.1 10^3/uL (0.0-0.1) 06/07/24 02:20 Nucleated RBC % (auto) 0 % 06/07/24 02:20 Nucleated RBCs # 0.0 /100WBC 06/07/24 02:20 PT 15.90 SECONDS (12.1-14.9) H 06/01/24 20:06 INR 1.23 (0.8-1.2) H 06/01/24 20:06 Sodium 145 mmol/L (136-145) 06/07/24 02:20 Potassium 3.6 mmol/L (3.5-5.1) 06/07/24 02:20 Chloride 111 mmol/L (98-107) H 06/07/24 02:20 Carbon Dioxide 22 mmol/L (22-29) 06/07/24 02:20 Anion Gap 15.6 (5-19) 06/07/24 02:20 BUN 16 mg/dL (8-23) 06/07/24 02:20 Creatinine 1.1 mg/dL (0.5-0.9) H 06/07/24 02:20 GFR Calculation Not Reportable 06/07/24 02:20 Glucose 82 mg/dL (65-115) 06/07/24 02:20 POC Glucose 81 mg/dL (70-110) 06/02/24 18:19 Estimat Average Glucose 114 06/02/24 03:54 Hemoglobin A1c 5.6 % (4.0-6.0) 06/02/24 03:54 Calculated Osmolality 300 mOsm/kg (285-295) H 06/07/24 02:20 Lactic Acid 1.2 mmol/L (0.5-2.2) 06/01/24 20:06 Calcium 8.1 mg/dL (8.5-10.5) L 06/07/24 02:20 Magnesium 2.0 mg/dL (1.7-2.3) 06/05/24 03:54 Iron 16 ug/dL (37-145) L 06/02/24 03:54 TIBC 298 mcg/dl 06/02/24 03:54 % Saturation 5.3 % (20-50) L 06/02/24 03:54 Unsat Iron Binding 282 ug/dL (112-347) 06/02/24 03:54 Total Bilirubin 0.2 mg/dL (0.15-1.2) 06/07/24 02:20 AST 21 U/L (0-32) 06/07/24 02:20 ALT 17 U/L (0-33) 06/07/24 02:20 Alkaline Phosphatase 72 U/L (35-105) 06/07/24 02:20 NT-Pro-B Natriuret Pep 72328 pg/mL (0-450) H 06/03/24 03:42 Total Protein 5.5 g/dL (6.6-8.7) L 06/07/24 02:20 Albumin 2.8 g/dL (3.5-5.2) L 06/07/24 02:20 Globulin 2.7 g/dL (1.3-4.6) 06/07/24 02:20 Triglycerides 104 mg/dL (0-150) 06/03/24 03:42 Cholesterol 94 mg/dL (0-200) 06/03/24 03:42 LDL Cholesterol, Calc 32 mg/dL (50-129) L 06/03/24 03:42 Total VLDL Cholesterol 21 mg/dL (0-30) 06/03/24 03:42 HDL Cholesterol 41 mg/dL (60-100) L 06/03/24 03:42 Cholesterol/HDL Ratio 2.29 mg/dL (0.0-4.40) 06/03/24 03:42 Vitamin B12 1220 pg/mL (232-1245) 06/02/24 03:54 Folate 6.7 ng/mL (4.8-37.3) 06/03/24 03:42 Procalcitonin 0.83 ng/mL (0-0.5) H 06/02/24 03:54 TSH 1.28 uIU/mL (0.27-4.20) 06/02/24 03:54 Urine Color Yellow (Yellow) 06/01/24 20:50 Urine Appearance Cloudy (CLEAR) A 06/01/24 20:50 Urine pH 5.5 (5-7) 06/01/24 20:50 Ur Specific Conner 1.016 (1.005-1.030) 06/01/24 20:50 Urine Protein 2+ (Negative) A 06/01/24 20:50 Urine Glucose (UA) Negative (Normal) 06/01/24 20:50 Urine Ketones Negative (Negative) 06/01/24 20:50 Urine Blood 2+ (Negative) A 06/01/24 20:50 Urine Nitrate Negative (Negative) 06/01/24 20:50 Urine Bilirubin Negative (Negative) 06/01/24 20:50 Urine Urobilinogen 1.0 mg/dL (Negative) 06/01/24 20:50 Ur Leukocyte Esterase 3+ (Negative) A 06/01/24 20:50 Urine RBC 0-2 /hpf (0-2) 06/01/24 20:50 Urine WBC >100 /hpf (0-5) H 06/01/24 20:50 Ur Squamous Epith Cells 0-5 /hpf (0-5) 06/01/24 20:50 Amorphous Sediment Not Reportable 06/01/24 20:50 Urine Bacteria 4+ /hpf (NONE) H 06/01/24 20:50 Hyaline Casts 87.69 /lpf 06/01/24 20:50 Ur Random Sodium 39 mmol/L 06/04/24 05:36 Ur Random Potassium 32 mmol/L 06/04/24 05:36 Ur Random Chloride 36 mmol/L 06/04/24 05:36 Urine Creatinine 93 mg/dL (28-217) 06/04/24 05:36 Digoxin 1.0 ng/mL (0.6-1.2) 06/06/24 03:46 Adenovirus (PCR) Not detected (NOT DETECT) 06/02/24 11:48 C. pneumoniae DNA (PCR) Not detected (NOT DETECT) 06/02/24 11:48 Coronavirus 229E (PCR) Not detected (NOT DETECT) 06/02/24 11:48 Human Metapneumovir PCR Not detected (NOT DETECT) 06/02/24 11:48 Influenza A (H1) PCR Not detected (NOT DETECT) 06/02/24 11:48 Influ A (H1/09) PCR Not detected (NOT DETECT) 06/02/24 11:48 Influenza A (H3) PCR Not detected (NOT DETECT) 06/02/24 11:48 Influenza Type A (PCR) Not detected (NOT DETECT) 06/02/24 11:48 Influenza Type B (PCR) Not detected (NOT DETECT) 06/02/24 11:48 M. pneumoniae (PCR) Not detected (NOT DETECT) 06/02/24 11:48 Parainfluenza 1 (PCR) Not detected (NOT DETECT) 06/02/24 11:48 Parainfluenza 2 (PCR) Not detected (NOT DETECT) 06/02/24 11:48 Parainfluenza 3 (PCR) Not detected (NOT DETECT) 06/02/24 11:48 Parainfluenza 4 (PCR) Not detected (NOT DETECT) 06/02/24 11:48 RSV Type A (PCR) Not detected (NOT DETECT) 06/02/24 11:48 RSV Type B (PCR) Not detected (NOT DETECT) 06/02/24 11:48 Entero/Rhino (PCR) Not detected (NOT DETECT) 06/02/24 11:48 SARS-CoV-2 (PCR) Not detected (NOT DETECT) 06/02/24 11:48 SARS-CoV-2 Ag (Rapid) Negative (Negative) 06/01/24 21:21 MRSA (PCR) Not detected (NOT DETECTED) 06/02/24 14:34 Vitals Last Vital Signs Temp 98.4 F 08/11/24 11:30 Pulse 102 H 06/07/24 11:30 Resp 22 H 06/07/24 11:30 BP 138/77 06/07/24 11:30 Pulse Ox 96 06/07/24 11:30 O2 Del Method Room Air 06/07/24 11:30 O2 Flow Rate 2 06/04/24 03:12 Discharge Plan Discharge Patient Disposition: Home Condition: Stable Prescriptions: New digoxin 125 mcg (0.125 mg) Tablet 125 mcg PO EVERY OTHER DAY Qty: 10 0RF metoprolol tartrate 25 mg Tablet 25 mg PO BID@0900,2100 Qty: 60 0RF Continued mirtazapine 15 mg tablet 15 mg PO QPM atorvastatin 10 mg tablet 10 mg PO QPM donepezil 10 mg tablet 10 mg PO QPM Eliquis 2.5 mg tablet 2.5 mg PO BID pantoprazole 20 mg tablet,delayed release (DR/EC) 20 mg PO QAM sertraline 50 mg tablet 50 mg PO QAM memantine 10 mg tablet 10 mg PO BID clonazepam 0.5 mg tablet 0.25 mg PO QPM Fiber (calcium polycarbophil) 625 mg Tablet 1,250 mg PO QPM vitamin B complex Tablet 1 tab PO DAILY Miralax 17 gram/dose Powder 17 g PO QAM Rx Instructions: IN 8 OZ LIQUID melatonin 5 mg Tablet 5 mg PO BEDTIME Probiotic 3 billion cell Capsule 3,000 mmu cells PO QAM Rx Instructions: administer with a meal Discontinued digoxin 125 mcg (0.125 mg) tablet 0.125 mg PO QPM Discharge Orders: Discharge Order (Routine); Ordered 06/07/24 Ordered By: Evans Severino Referrals: Dr. Ralph [Other] - 06/10/24 12:40 pm (Please arrive by 1225; to complete registration forms and update information. You will be seeing Chloe, the nurse practitioner. ) [facility] [Outside] Patient Instructions: Opioid Safety Activity Restrictions/Additional Instructions: IV ceftriaxone which is the antibiotic 1 time a day 1 g for till 06/18. Weekly CBC and CMP to be followed up with primary care provider. Dose of digoxin has been changed to every other day from daily. Take metoprolol 25 mg twice daily. Discharge Attestations Time Spent in Discharge Care*: greater than 30 min Specific Discharge Activities: educating and/or supporting family/caregiver, discussing with pcp/other providers, discussing with binder caser/social workers/dc planners, documenting/other paperwork and evaluating patient/reviewing data Status at Discharge: Cognitive status at discharge: severely impaired co gnition , Behavioral status at discharge: cooperative , Functional status at discharge: uses cane/walker , Overall status at discharge: patient is back to baseline Quality Metrics Clinical Quality Measures [ No reported AMI, CVA or VTE this stay] Coding Level of Care Code 45704 Total time (in minutes) for Discharge: 60 Diagnoses Sepsis A41.9 E coli bacteremia R78.81; B96.20 Acute cystitis N30.00 Atrial fibrillation with RVR I48.91 JERRY (acute kidney injury) N17.9 Pneumonia J18.9 Altered mental status R41.82 Elevated digoxin level R78.89 Vascular dementia F01.50
[2024-06-07] MEDS: cefTRIAXone 1,000 mg SDV 1000 MG IVP (12:55)
--- NOTE | 2024-06-07 14:15 | PC.NURSE ---
picc line dressing change via aseptic as ordered. pls see iv maintenance chart. wrap the right upper arm area with surgilast and coband for more securement since patient likes to pick on anything attached to her arms.
--- NOTE | 2024-06-07 14:44 | PC.NURSE ---
Discharge Note Patient discharged to home w/ home health services via private vehicle accompanied by daughters. Discharge instructions reviewed with patient and/or sales representative [employer]. Mobile pharmacy medications and/or prescriptions provided. Belongings/home medications returned. Faxed discharge papers and iv home administration orders to [email or web address] fax # provided by nette [email or web address].
== END 2024-06-07 14:42 | disposition home or self-care (01) | DRG 871 ==
LOC: ER 21:42 → CSU 22:15
PROVIDERS: Admitting Provider Student in an Organized Health Care Education/Training Program; Emergency Provider Emergency Medicine; Visit Provider Student in an Organized Health Care Education/Training Program
DX: A41.9 Sepsis, unspecified organism (principal); G93.41 Metabolic encephalopathy; J18.9 Pneumonia, unspecified organism; N30.00 Acute cystitis without hematuria; N17.9 Acute kidney failure, unspecified; R65.20 Severe sepsis without septic shock; F01.50 Vascular dementia, unspecified severity, without behavioral disturbance, psychotic disturbance, mood disturbance, and anxiety; I48.91 Unspecified atrial fibrillation; B96.20 Unspecified Escherichia coli [E. coli] as the cause of diseases classified elsewhere; B96.1 Klebsiella pneumoniae [K. pneumoniae] as the cause of diseases classified elsewhere; Z79.01 Long term (current) use of anticoagulants; Z11.52 Encounter for screening for COVID-19; Z86.73 Personal history of transient ischemic attack (TIA), and cerebral infarction without residual deficits; Z87.440 Personal history of urinary (tract) infections
CPT/HCPCS: 36415; 36416; 36573; 36592; 51702; 70450; 70496; 70498; 71045; 74176; 80048; 80053; 80061; 80162; 81003; 81015; 82436; 82570; 82607; 82746; 82962; 83036; 83540; 83550; 83605; 83735; 83880; 84133; 84145; 84300; 84443; 85025; 85610; 87040; 87077; 87086; 87150; 87186; 87205; 87426; 87486; 87581; 87633; 87641; 93005; 93306; 96365; 96367; 97110; 97116; 97161; 97530; 99285; A9270; J0131; J0696; J2543; J3370; J7030; J7050; Q0144; Q9967